=== PATIENT | male | born 1955 | race Caucasian/White ===

== ENCOUNTER → 2017-07-20 14:03 | Outpatient (CLI) | payer OTHER, SELFPAY ==
[2017-07-20 15:30] LABS: Albumin, Serum 3.7 g/dL (3.2-5.0); BUN 24 mg/dL (7-18); BUN/Creat Ratio 15.4 RATIO (10-20); Chloride 104 mmol/L (98-107); Creatinine, Serum 1.56 mg/dL (0.70-1.30); EST Glomerular Filtration Rate 48 mL/min (>60); Est Glom Filt Rate - Afr Amer 58 mL/min (>60); Glucose 73 mg/dL (74-106); Phosphorus 2.6 mg/dL (2.5-4.9); Potassium 4.2 mmol/L (3.5-5.1); Sodium Level 140 mmol/L (136-145)
[2017-07-20 15:52] LABS: Protein, Urine (Random) 9.7 mg/dL (<11.9); Protein:Creat Ratio 92 mg/g CRE (0-200)
== END ==
PROVIDERS: Family Provider Family Medicine; PCP Family Medicine; Visit Provider Internal Medicine Nephrology
DX: E11.22 Type 2 diabetes mellitus with diabetic chronic kidney disease (principal); N18.3 Chronic kidney disease, stage 3 (moderate)
CPT/HCPCS: 36415; 80069; 82570; 84156

== ENCOUNTER → 2017-11-03 07:35 | Outpatient (CLI) | payer OTHER, SELFPAY ==
--- NOTE | 2017-11-03 07:55 | RAD_ITS ---
STUDY: X-RAY CHEST REASON FOR EXAM: Male, 62 years old. Shortness of breath TECHNIQUE: PA and lateral views of the chest. COMPARISON: 06/12/2013 FINDINGS: The lungs are hyperinflated but clear. No focal consolidation. There is no demonstrated pleural abnormality. Normal size heart. Normal mediastinum and erwin. Normal visualized pulmonary arteries. Normal visualized aortic arch and descending thoracic aorta. Normal visualized thoracic spine. Normal visualized ribs, clavicles, and shoulders. There is no demonstrated abnormality of the visualized soft tissue structures of the upper abdomen. RAD/Chest PA and Lateral IMPRESSION: Hyperinflation, without focal consolidation. Electronically Signed: Chandu Stephenson DO at 8:28 EDT Tel , Service support ,
[2017-11-03 10:42] LABS: ALB/GLOB Ratio 1.1 RATIO (0.9-2.4); AST(SGOT) 19 U/L (15-37); Alanine Aminotransfer ALT/SGPT 25 U/L (16-61); Albumin, Serum 3.7 g/dL (3.2-5.0); Alkaline Phosphatase 74 U/L (45-117); Anion Gap 7 (5-15); BUN 28 mg/dL (7-18); BUN/Creat Ratio 16.9 RATIO (10-20); Calcium,Total 8.9 mg/dL (8.5-10.1); Chloride 105 mmol/L (98-107); Cholesterol 132 mg/dL (200); Creatinine, Serum 1.66 mg/dL (0.70-1.30); EST Glomerular Filtration Rate 45 mL/min (>60); Est Glom Filt Rate - Afr Amer 54 mL/min (>60); Globulin 3.5 g/dL (2.2-4.2); Glucose 92 mg/dL (74-106); High Density Lipoprotein 33 mg/dL; Potassium 4.1 mmol/L (3.5-5.1); Protein, Total 7.2 g/dL (6.4-8.2); Sodium Level 142 mmol/L (136-145); Triglycerides 168 mg/dL; Very Low Density Lipoprotein 34 mg/dL (5-40)
== END ==
PROVIDERS: Family Provider Family Medicine; PCP Family Medicine; Visit Provider Family Medicine
DX: E78.5 Hyperlipidemia, unspecified (principal); E11.9 Type 2 diabetes mellitus without complications; I10 Essential (primary) hypertension; R06.00 Dyspnea, unspecified
CPT/HCPCS: 36415; 71046; 80053; 80061; 83036

== ENCOUNTER → 2017-12-05 06:47 | Outpatient (CLI) | payer OTHER, SELFPAY ==
--- NOTE | 2017-12-05 14:24 | PFT ---
INTRODUCTION: The patient is a 62-year-old male that presents for pulmonary function testing secondary to a diagnosis of dyspnea. Respiratory therapy reports good patient effort. Bronchodilators were used during testing. INTERPRETATION: Forced expiration spirometry demonstrates no evidence of a large airways obstructive ventilatory defect. There was no significant response to aerosolized bronchodilators, based upon strict ATS criteria. Spirograms are of good quality and plateau gradually. Body plethysmography was performed and reveals lung volumes to be within normal limits. Diffusing capacity by single breath CO is increased at 124% of predicted. IMPRESSION: These pulmonary function studies are grossly within normal limits.
== END ==
PROVIDERS: Family Provider Family Medicine; PCP Family Medicine; Visit Provider Family Medicine
DX: R06.00 Dyspnea, unspecified (principal)
CPT/HCPCS: 94060; 94726; 94729

== ENCOUNTER 2017-12-16 13:47 | Emergency (ER) | payer OTHER, SELFPAY ==
[2017-12-16] VITALS (8 sets, daily range): BP systolic 121–155; BP diastolic 73–101; PULSE 88–130; RESP 14–24; TEMP 36.4; O2SAT 94–98; BMI 27.1
--- NOTE | 2017-12-16 14:20 | EKG12_ITS ---
Test Reason : SOB Blood Pressure : / mmHG Vent. Rate : 117 BPM Atrial Rate : 117 BPM P-R Int : 164 ms QRS Dur : 146 ms QT Int : 338 ms P-R-T Axes : 063 042 012 degrees QTc Int : 471 ms Sinus tachycardia Right bundle branch block Abnormal ECG Confirmed by ELSIE ROSALES, LACHELLE ([id number]), newspaper editor managing SEBASTIÁN HORNE ([id number]) on 12/19/2017 3:07:38 PM Referred By: RENA Confirmed By:LACHELLE ZIMMERMAN MD
--- NOTE | 2017-12-16 14:21 | RAD_ITS ---
STUDY: X-RAY CHEST REASON FOR EXAM: Male, 62 years old. Shortness of breath and tachycardia. TECHNIQUE: PA and lateral views of the chest. COMPARISON: 11/03/2017. FINDINGS: The lungs are clear and expanded. There is no demonstrated pleural abnormality. Normal size heart. Normal mediastinum and erwin. Normal visualized pulmonary arteries. Normal visualized aortic arch and descending thoracic aorta. Normal visualized thoracic spine. Normal visualized ribs, clavicles, and shoulders. There is no demonstrated abnormality of the visualized soft tissue structures of the upper abdomen. RAD/Chest PA and Lateral IMPRESSION: No active pulmonary disease. Electronically Signed: Juan Sanchez MD at 15:01 EDT Tel , Service support ,
[2017-12-16 14:33] LABS: Absolute Lymphocyte Count 2.24 X10^3/ul (0.83-4.51); Basophil# 0.02 X10^3/uL; Basophil% 0.2 % (0-1); Eosinophil# 0.18 X10^3/uL; Eosinophils% 1.5 % (0-5); Hematocrit 42.8 % (40-54); Hemoglobin 14.5 g/dl (13.0-16.5); Lymphocyte # 2.24 X10^3/ul (4.0); Lymphocyte % 19.2 % (19-41); Mean Corp Hgb Conc 33.9 g/gl (32-36); Mean Corpuscular Hgb 30.1 pg (27.0-32.0); Mean Corpuscular Volume 88.8 fL (80-94); Mean Platelet Vol. 9.2 fl (6.2-12.0); Monocyte# 1.28 X10^3/uL; Monocyte% 10.9 % (0-10); Neutrophil # 7.96 X10^3/uL (2.7-7.7); Neutrophil % 68.1 % (47-70); POSITIVE COUNT NO; POSITIVE DIFFERENTIAL NO; POSITIVE MORPHOLOGY NO; Platelet Count 301 K/mm3 (150-450); RBC Distribution Width CV 12.5 % (11.6-14.6); RBC Distribution Width SD 40.3 fl (35.1-43.9); Red Blood Count 4.82 M/mm3 (4.6-6.2); White Blood Count 11.7 K/mm3 (4.4-11.0)
[2017-12-16 14:39] LABS: D-Dimer Quantitative (DVT/PE) 1.36 FEU/ug/m (0.27-0.49)
[2017-12-16 14:47] LABS: Anion Gap 7 (5-15); BUN 25 mg/dL (7-18); BUN/Creat Ratio 15.4 RATIO (10-20); Calcium,Total 9.9 mg/dL (8.5-10.1); Chloride 102 mmol/L (98-107); Creatinine, Serum 1.62 mg/dL (0.70-1.30); EST Glomerular Filtration Rate 46 mL/min (>60); Est Glom Filt Rate - Afr Amer 55 mL/min (>60); Estimated Creatinine Clearance 52.06 ml/min; Glucose 120 mg/dL (74-106); Potassium 3.7 mmol/L (3.5-5.1); Sodium Level 138 mmol/L (136-145)
[2017-12-16] MEDS: 0.9% Normal Saline 1,000 ML 999 ML IV (15:08)
--- NOTE | 2017-12-16 17:06 | CT_ITS ---
STUDY: CTA CHEST REASON FOR EXAM: Male, 62 years old. Shortness of breath, dizziness RADIATION DOSAGE (If Supplied By Facility): CTDIvol = ( 17.02 ) mGy, DLP = ( 672.48 ) mGycm TECHNIQUE: The examination was performed with the intravenous administration of 100 ml of Isovue 370 contrast material. Post-processing of the angiographic images was performed, with multiplanar reformation and 3D reconstruction. Individualized dose optimization techniques were used for this CT. COMPARISON: Chest radiographs from the same day FINDINGS: Normal enhancement of the main pulmonary artery and right and left pulmonary arteries without filling defects. There is limited enhancement of the bilateral peripheral pulmonary arteries. There are minimal vascular calcifications in the thoracic aorta. There is no demonstrated aortic dissection. Incidentally noted is takeoff of the left vertebral artery from the aortic arch which is a normal anatomic variant. The heart is normal in size. There are calcifications of the coronary arteries. There are small lymph nodes scattered in the mediastinum. The hilar regions are unremarkable. The airways are unremarkable. There are mild chronic changes in the periphery of both lungs with an upper lobe predominance. There is a 6 mm opacity in the periphery of the left lower lobe on image 134. There is no demonstrated pleural abnormality. The soft tissues are unremarkable. There are mild degenerative changes in the visualized spine. There is a small hiatal hernia. There are no acute abnormalities in the upper abdomen. CT/CTA Chest W/WO Contrast IMPRESSION: There is no evidence of pulmonary embolism in the main pulmonary arteries. The distal branches are not adequately visualized due to suboptimal contrast bolus. There is no aortic aneurysm or dissection. There are no acute parenchymal abnormalities. There is no pleural effusion or significant lymphadenopathy. There is an indeterminate 6 mm opacity in the periphery of the left lower lobe. A CT of the chest can be obtained in six months to reevaluate this finding. Electronically Signed: Jenelle Tse MD at 18:49 EDT Tel Direct: [phone], Service support ,
[2017-12-16] MEDS: 0.9% Normal Saline 1,000 ML 150 ML IV (17:10)
--- NOTE | 2017-12-16 18:00 | ED.VISSUMM ---
- ER Visit Summary Date of Service: 12/16/17 Chief Complaint: Shortness of breath History of Present Illness: The patient is a 62 M who presents with shortness of breath that began today. Patient states his breathing is worse with exertion. Patient states he was planting a tree earlier today and when he was walking back to bring the water to the tree he became short of breath. Patient states she felt like he was lightheaded and felt his heart racing when he got the shortness of breath. Patient states this resolved after sitting for a few minutes. Patient states that it has been coming and going since. Patient also admits to some episodes of diaphoresis. Patient denies any fevers or chills. Patient admits to some nausea and vomiting yesterday. Patient is also concerned over pain in his right inguinal area. Patient states another family member was recently diagnosed with Lyme disease and he is concerned that his inguinal pain is from that. Patient denies seeing any ticks. Patient states he did have some redness in his inguinal area yesterday. Patient states the pain radiates to his right thigh and right buttock. Physical Examination: Vital signs are stable except for tachycardia of 130. Patient is afebrile. Patient is in no acute distress. Oral mucosa is pink and moist. Neck is supple. Trachea is midline. There is no JVD noted. Heart was regular and tachycardic. Lungs are clear and equal bilaterally. There is good respiratory effort noted. Abdomen is soft. Bowel sounds are normal. There is no tenderness noted. Skin is warm and dry. There is no erythema over the inguinal area. There is no lymphadenopathy noted. Extremities are intact. There is no edema noted. There is no calf tenderness. There is some mild tenderness over the right medial thigh. Cranial nerves II through XII are intact. There are no focal motor or sensory deficits noted. Test Results: D-dimer was elevated. CBC and basic metabolic profile were essentially within normal limits with the exception of a mildly elevated creatinine of 1.62. EKG showed sinus tachycardia with a rate of 117. There is a right bundle branch block pattern noted. There are no prior EKGs available for comparison. Chest x-ray does not show any acute cardiopulmonary process. CTA of the chest was obtained and is pending. Emergency Department Course and Treatment: Patient was given IV fluids here. Patient's tachycardia improved. I discussed the risks of IV dye with the patient given his history of renal disease. Patient did agree to have the CTA of the chest performed. Disposition: Care of the patient was turned over to Dr. Avalos pending results of the CTA. Patient will be discharged if the CTA is negative. Patient will be admitted if CTA shows a pulmonary embolism Impression: Dyspnea This note was generated with [employer] dictation software. It may contain incorrect words, spelling, and punctuation that were not noted in review of the chart prior to signing ED Disposition - Plan for ED Patient: Chief Complaint: Shortness of Breath Diagnosis: Dyspnea Instructions: ED Dyspnea Shortness of Breath Referrals: Sawyer Yan DO [Primary Care Provider] -
--- NOTE | 2017-12-16 19:01 | ED.DEP ---
ED Disposition - Plan for ED Patient: Disposition: Home or Assisted Living Chief Complaint: Shortness of Breath Diagnosis: Dyspnea Instructions: ED Dyspnea Shortness of Breath, ED Nodule Solitary Pulmonary Referrals: Sawyer Yan DO [Primary Care Provider] -
== END 2017-12-16 19:09 | disposition home or self-care (01) ==
PROVIDERS: Emergency Provider Emergency Medicine; Family Provider Family Medicine; PCP Family Medicine
DX: R06.00 Dyspnea, unspecified (principal); R42 Dizziness and giddiness; R61 Generalized hyperhidrosis; R11.2 Nausea with vomiting, unspecified; R10.31 Right lower quadrant pain; R05 Cough; R51 Headache; R79.89 Other specified abnormal findings of blood chemistry; I45.10 Unspecified right bundle-branch block; N28.9 Disorder of kidney and ureter, unspecified; I10 Essential (primary) hypertension; E78.00 Pure hypercholesterolemia, unspecified; Z85.038 Personal history of other malignant neoplasm of large intestine; Z79.899 Other long term (current) drug therapy
CPT/HCPCS: 71046; 71275; 80048; 84484; 85025; 85379; 93005; 96360; 96361; 99284; J7030; Q9967; A4216

== ENCOUNTER → 2018-01-17 10:09 | Outpatient (CLI) | payer OTHER, SELFPAY ==
[2018-01-17 11:38] LABS: Anion Gap 10 (5-15); BUN 24 mg/dL (7-18); Calcium,Total 9.1 mg/dL (8.5-10.1); Chloride 100 mmol/L (98-107); EST Glomerular Filtration Rate 46 mL/min (>60); Est Glom Filt Rate - Afr Amer 56 mL/min (>60); Glucose 95 mg/dL (74-106); Potassium 4.4 mmol/L (3.5-5.1); Sodium Level 138 mmol/L (136-145); Thyroid Stim Hormone (TSH) 1.01 uIU/mL (0.358-3.74)
== END ==
PROVIDERS: Family Provider Family Medicine; PCP Family Medicine; Visit Provider Internal Medicine Cardiovascular Disease
DX: I45.10 Unspecified right bundle-branch block (principal); R06.00 Dyspnea, unspecified
CPT/HCPCS: 36415; 80048; 84443

== ENCOUNTER → 2018-01-26 14:07 | Outpatient (CLI) | payer OTHER, SELFPAY ==
[2018-01-26 14:57] LABS: Hematocrit 33.7 % (40-54); Hemoglobin 10.8 g/dl (13.0-16.5); Mean Corpuscular Hgb 28.1 pg (27.0-32.0); Mean Corpuscular Volume 87.8 fL (80-94); Mean Platelet Vol. 8.6 fl (6.2-12.0); Platelet Count 339 K/mm3 (150-450); RBC Distribution Width CV 13.5 % (11.6-14.6); Red Blood Count 3.84 M/mm3 (4.6-6.2); White Blood Count 9.2 K/mm3 (4.4-11.0)
[2018-01-26 15:00] LABS: Scan Indicated on CBC? Y/N NO
[2018-01-26 15:22] LABS: Albumin, Serum 2.5 g/dL (3.2-5.0); BUN 21 mg/dL (7-18); BUN/Creat Ratio 13.9 RATIO (10-20); Calcium,Total 8.7 mg/dL (8.5-10.1); Chloride 101 mmol/L (98-107); Creatinine, Serum 1.51 mg/dL (0.70-1.30); EST Glomerular Filtration Rate 50 mL/min (>60); Est Glom Filt Rate - Afr Amer 60 mL/min (>60); Glucose 199 mg/dL (74-106); Phosphorus 2.4 mg/dL (2.5-4.9); Potassium 3.9 mmol/L (3.5-5.1); Sodium Level 136 mmol/L (136-145)
== END ==
PROVIDERS: Family Provider Family Medicine; PCP Family Medicine; Visit Provider Internal Medicine Nephrology
DX: N18.3 Chronic kidney disease, stage 3 (moderate) (principal)
CPT/HCPCS: 36415; 80069; 83970; 85027

== ENCOUNTER → 2018-02-07 06:33 | Outpatient (CLI) | payer OTHER, SELFPAY ==
--- NOTE | 2018-02-07 06:34 | ECHOD_ITS ---
Reason For Study: DYSPNEA/SOB Procedure This was a 2D Doppler, Color Flow transthoracic echocardiogram. Exam performed in department. Left Ventricle Normal LV size. Left ventricular systolic function is normal. The estimated ejection fraction is 60 %. Stage 1 diastolic dysfunction. No regional wall motion abnormalities noted. Right Ventricle Normal RV size. Normal systolic function. Atria Normal left atrium. Normal right atrium. Bubble contrast study negative for right to left interatrial shunt. Mitral Valve Normal mitral valve. Tricuspid Valve Normal tricuspid valve. Aortic Valve Normal aortic valve. Trisinus/trileaflet aortic valve. Pulmonic Valve Normal pulmonic valve. Great Vessels Normal aortic root. The pulmonary artery is normal size. Normal inferior vena cava. Pericardium/Pleural No pericardial effusion. Medication Performed a rapid injection of agitated mix of 9 cc saline and 1cc air to assess for atrial septal defect. MMode/2D Measurements & Calculations LVIDd: 4.5 cm IVSd: 1.2 cm Ao root diam: 3.2 cm LVIDs: 3.0 cm LVPWd: 1.1 cm LA dimension: 3.4 cm RVDd: 3.8 cm FS: 34.1 % LAV(MOD-bp): 36.4 ml LVAd ap4: 32.6 cm2 SV(MOD-sp4): 64.3 ml LAV(MOD-bp) Indexed: 16.9 ml/m2 EDV(MOD-sp4): 106.2 ml LAV(MOD-sp2): 36.2 ml EDV(sp4-el): 107.4 ml LAV(MOD-sp4): 34.4 ml LVAs ap4: 18.4 cm2 ESV(MOD-sp4): 41.9 ml ESV(sp4-el): 41.7 ml EF(MOD-sp4): 60.5 % EF(sp4-el): 61.2 % SV(sp4-el): 65.8 ml LA A4 area: 14.8 cm2 RA A4 area: 14.7 cm2 Time Measurements MV dec time: 0.28 sec Doppler Measurements & Calculations MV E max jeronimo: 57.4 cm/sec Lat Peak E' Jeronimo: 7.0 cm/sec Med Peak E' Jeronimo: 7.0 cm/sec MV A max jeronimo: 87.0 cm/sec E/E' lat: 8.1 E/E' med: 8.2 MV E/A: 0.66 Ao V2 max: 125.1 cm/sec LV V1 max: 116.5 cm/sec PA V2 max: 104.8 cm/sec Ao max P.3 mmHg LV V1 max P.4 mmHg TR max jeronimo: 252.4 cm/sec TR max P.6 mmHg Interpretation Summary Normal LV size. Left ventricular systolic function is normal. The estimated ejection fraction is 60 %. Stage 1 diastolic dysfunction. Bubble contrast study negative for right to left interatrial shunt. Ordering Physician: Manas Warren Referring Physician: FRANKIE JIM Performed By: Vani Mejía RDCS
--- NOTE | 2018-02-07 10:30 | STRESSREP ---
Stress Test Report Exercise myocardial perfusion stress test. 62-year-old man with a history of shortness of breath. Medications ezetimibe metformin. Stress protocol: Resting EKG demonstrates normal sinus rhythm with a rate of 60 bpm with a right bundle branch block resting blood pressures 142/88 mmHg. The patient exercised according to regular Pradeep protocol for total duration of 4 minutes and 45 seconds with a maximum heart rate of 169 beats minute which was 108% of maximum predicted heart rate and a workload of 6.7 metabolic equivalents. Patient maintained sinus rhythm throughout the recording. There were no ST or T-wave changes noted suggest abnormal flow reserve and at peak exercise upsloping ST changes only were noted with no meet the criteria for ischemia the resting blood pressure is 142/88 with a final blood pressure 130/80 mmHg. There was no increase in blood pressure with exercise. The patient was noted to be markedly short of breath. Myocardial perfusion protocol. 11.2 mCi of technetium 99m sestamibi was injected at rest. The patient exercised according to regular Pradeep protocol for total duration of 4 minutes and 45 seconds at peak exercise 33.7 mCi of technetium 99m sestamibi was injected stress images were obtained stress and rest images were reconstructed and compared in the short axis vertical and horizontal long axis. Gated images were also noted. Perfusion SPECT analysis: Review of the stress images demonstrate normal uptake of tracer noted in the septum anterior wall lateral wall. The entire inferior wall appears to have reduced perfusion on the stress and resting images. The above is suggestive of either previous diaphragmatic attenuation extensive or previous extensive inferior infarct. Gated SPECT analysis: The gated ejection fraction is noted to be 58%. No obvious wall motion abnormalities are noted. Conclusion: Exercise myocardial perfusion stress test with no obvious ischemia noted. Previous extensive inferior infarct cannot be excluded. Moderate functional aerobic impairment. In appropriate blood pressure response to exercise.
== END ==
PROVIDERS: Family Provider Family Medicine; PCP Family Medicine; Visit Provider Internal Medicine Cardiovascular Disease
DX: R06.00 Dyspnea, unspecified (principal)
CPT/HCPCS: 78452; 93017; 93306; A9500; A4216

== ENCOUNTER → 2018-02-09 08:05 | Outpatient (CLI) | payer OTHER, SELFPAY ==
[2018-02-09 08:45] LABS: Absolute Lymphocyte Count 2.09 X10^3/ul (0.83-4.51); Absolute Neutrophil Count 4.1 X10^3/uL (2.0-7.7); Basophil# 0.02 X10^3/uL; Basophil% 0.3 % (0-1); Eosinophil# 0.05 X10^3/uL; Eosinophils% 0.7 % (0-5); Hematocrit 35.4 % (40-54); Hemoglobin 11.3 g/dl (13.0-16.5); Lymphocyte # 2.09 X10^3/ul (4.0); Lymphocyte % 30.6 % (19-41); Mean Corp Hgb Conc 31.9 g/gl (32-36); Mean Corpuscular Hgb 28.2 pg (27.0-32.0); Mean Corpuscular Volume 88.3 fL (80-94); Mean Platelet Vol. 8.7 fl (6.2-12.0); Monocyte# 0.54 X10^3/uL; Monocyte% 7.9 % (0-10); Neutrophil # 4.12 X10^3/uL (2.7-7.7); Neutrophil % 60.4 % (47-70); Platelet Count 292 K/mm3 (150-450); RBC Distribution Width CV 14.3 % (11.6-14.6); Red Blood Count 4.01 M/mm3 (4.6-6.2); White Blood Count 6.8 K/mm3 (4.4-11.0)
[2018-02-09 08:47] LABS: POSITIVE COUNT NO; POSITIVE DIFFERENTIAL NO; POSITIVE MORPHOLOGY NO
[2018-02-09 08:53] LABS: Prothrombin Time (Protime)PT. 13.5 SECONDS (11.7-14.9)
[2018-02-09 09:15] LABS: Anion Gap 10 (5-15); BUN 21 mg/dL (7-18); BUN/Creat Ratio 13.3 RATIO (10-20); Calcium,Total 8.8 mg/dL (8.5-10.1); Chloride 105 mmol/L (98-107); Creatinine, Serum 1.58 mg/dL (0.70-1.30); EST Glomerular Filtration Rate 47 mL/min (>60); Est Glom Filt Rate - Afr Amer 57 mL/min (>60); Glucose 164 mg/dL (74-106); Potassium 3.9 mmol/L (3.5-5.1); Sodium Level 138 mmol/L (136-145)
== END ==
PROVIDERS: Family Provider Family Medicine; PCP Family Medicine; Visit Provider Internal Medicine Cardiovascular Disease
DX: E78.5 Hyperlipidemia, unspecified (principal); I10 Essential (primary) hypertension; R06.00 Dyspnea, unspecified; E11.9 Type 2 diabetes mellitus without complications; I45.10 Unspecified right bundle-branch block; R94.31 Abnormal electrocardiogram [ECG] [EKG]; R94.39 Abnormal result of other cardiovascular function study
CPT/HCPCS: 36415; 80048; 85025; 85610; 85730

== ENCOUNTER 2018-02-12 06:52 | Day surgery (SDC) | payer OTHER, SELFPAY ==
[2018-02-09 09:59] VITALS: BMI 26.1
--- NOTE | 2018-02-12 10:41 | CL.D_ITS ---
Patient Name: SHADIA BHATIA Study Date: 02/12/2018 Performing: Manas Warren MD Ht: 72.83 inches 185 cm : 1955 Wt: 198.42 lbs 90 kg Age: 62 Gender: male BSA: 2.14 PROCEDURE(S) PERFORMED TK93-VPU/COR CLINICAL PROFILE AND INDICATIONS Indications: Suspected CAD Heart Failure: None Stress/Imaging Stress Test w/SPECT MPI: Yes Result: IndeterminantStress Test with SPECT MPI: Inde terminant CAD Presentations: No Sxs, no angina. CONCLUSIONS Non obstructive coronary arteries RECOMMENDATIONS Medical therapy DESCRIPTION OF PROCEDURE The patient arrived to the procedure lab. The risks and benefits of the procedure as well as a full d escription of our services here and current unavailability of surgical backup were fully explained to the patient and/or their significant other prior to the catheterization. The Timeout was completed, verifying the correct patient and procedure. The patient's procedural site was prepped and draped in the usual fashion. Local anesthetic was given subcutaneously to right radial region with Lidocaine 2% . Using a modified Seldinger technique, arterial access was obtained via the right radial artery, a 6 Fr sheath was inserted. Left Coronary Artery selective angiography was performed in multiple views u sing a 5 Fr. 4.0 [place] catheter. Right Coronary Artery selective angiography was then performed in mu ltiple views using a 5 Fr. 4.0 [place] catheter.The arterial sheath was pulled and a TR Band was applie d for hemostasis, 14cc of air CORONARY ANGIOGRAPHY DOMINANCE: Right Dominant LEFT HEART ASSESSMENT Left Ventricular Ejection Fraction: Not assessed LEFT MAIN: Angiographically normal LEFT ANTERIOR DECENDING ARTERY: MID LAD: Mild luminal irregularities less than 30% CIRCUMFLEX ARTERY: Angiographically normal RIGHT CORONARY ARTERY: Angiographically normal COMPLICATIONS No Complications PROCEDURE MEDICATIONS Fentanyl 50 mcg IV Versed 1 mg IV Versed 1 mg IV Versed 1 mg IV Oxygen: 2 L/min via nasal cannula Heparin diluted in 23cc Heparinized saline. Patient given 10cc IA of this solution. 02/12/2018 10:16: 07 Verapamil 2.5mg, Ntg 100mcgs, 2000 units of Heparin diluted in 23cc Heparinized saline. Patient give n 10cc IA of this solution. 02/12/2018 10:16:07 SUMMARY OF HEMODYNAMIC DATA Time AIR REST ECG 07:16:07 AO 102/66 (82) SA 10:17:35 Signed By Manas Warren MD On 02/12/2018 10:41:17 Manas Warren MD
== END 2018-02-12 13:30 | disposition home or self-care (01) ==
LOC: CLSP 06:54
PROVIDERS: Family Provider Family Medicine; PCP Family Medicine; Visit Provider Internal Medicine Cardiovascular Disease
DX: R06.00 Dyspnea, unspecified (principal); I45.10 Unspecified right bundle-branch block; R94.31 Abnormal electrocardiogram [ECG] [EKG]; E11.9 Type 2 diabetes mellitus without complications; I10 Essential (primary) hypertension; E78.5 Hyperlipidemia, unspecified; F41.9 Anxiety disorder, unspecified; L30.9 Dermatitis, unspecified; Z85.038 Personal history of other malignant neoplasm of large intestine; Z79.84 Long term (current) use of oral hypoglycemic drugs; Z79.899 Other long term (current) drug therapy
CPT/HCPCS: 93454; 99152; J7040; Q9967; C1769; C1894

== ENCOUNTER → 2018-02-15 09:59 | Outpatient (CLI) | payer OTHER, SELFPAY ==
[2018-02-15 11:07] LABS: Anion Gap 6 (5-15); BUN 17 mg/dL (7-18); BUN/Creat Ratio 11.6 RATIO (10-20); Chloride 106 mmol/L (98-107); Creatinine, Serum 1.47 mg/dL (0.70-1.30); EST Glomerular Filtration Rate 51 mL/min (>60); Est Glom Filt Rate - Afr Amer 62 mL/min (>60); Glucose 76 mg/dL (74-106); Potassium 4.2 mmol/L (3.5-5.1); Sodium Level 140 mmol/L (136-145)
== END ==
PROVIDERS: Family Provider Family Medicine; PCP Family Medicine; Referring Provider Internal Medicine Cardiovascular Disease; Visit Provider Internal Medicine Cardiovascular Disease
DX: R94.39 Abnormal result of other cardiovascular function study (principal); R94.31 Abnormal electrocardiogram [ECG] [EKG]; I45.10 Unspecified right bundle-branch block; E11.9 Type 2 diabetes mellitus without complications; R06.00 Dyspnea, unspecified; E78.5 Hyperlipidemia, unspecified; I10 Essential (primary) hypertension
CPT/HCPCS: 36415; 80048

== ENCOUNTER → 2018-03-16 09:41 | Outpatient (CLI) | payer OTHER, SELFPAY ==
--- NOTE | 2018-03-16 09:44 | CDU_ITS ---
[id number] ^CDU^Carotid Duplex Ultrasound [id number] TAG_START Cardiovascular Services Carotid Duplex Ultrasound [facility] [place] [id number] Ordering Physician: Sawyer Yan TAG_ENDED TAG_START Name: SHADIA BHATIA Study Date: 03/16/2018 09:46 AM Patient Location: [facility] : 1955 Gender: Male Age: 62 yrs Ethnicity: C TAG_ENDED Reason For Study: Vision Loss Rt. Velocities/BP Lt. Velocities/BP Prox CCA 80.9/16.4 cm/sec. Prox CCA 76.2/21.1 cm/sec. Mid CCA 69.2/16.4 cm/sec. Mid CCA 66/19.9 cm/sec. Dist CCA 59.3/14.1 cm/sec. Dist CCA 62.7/22.9 cm/sec. Prox ICA 41.7/16.7 cm/sec. Prox ICA 77.4/28.1 cm/sec. Mid ICA 47.9/18.5 cm/sec. Mid ICA 57.6/20.8 cm/sec. Dist ICA 77.4/24 cm/sec. Dist ICA 65.2/26.7 cm/sec. Rt. ICA/CCA = 1.12. Lt. ICA/CCA = 1.17. Prox ECA 79.2/11.1 cm/sec. Prox ECA 78/9.97 cm/sec. Rt. Vert. 39.7/11 cm/sec. Lt. Vert. 33.3/6.9 cm/sec. Right Extracranial There is intimal thickening but no significant atherosclerotic plaque noted in the right common carotid artery. There is intimal thickening but no significant atherosclerotic plaque noted in the right internal carotid artery. There is no significant atherosclerotic plaque noted in the right external carotid artery. Antegrade flow is noted in the right vertebral artery. There is heterogeneous, irregular atherosclerotic plaque noted in the right bulb. Left Extracranial There is intimal thickening but no significant atherosclerotic plaque noted in the left common carotid artery. There is intimal thickening but no significant atherosclerotic plaque noted in the left internal carotid artery. There is intimal thickening but no significant atherosclerotic plaque noted in the left external carotid artery. Antegrade flow is noted in the left vertebral artery. There is heterogeneous, smooth atherosclerotic plaque noted in the left bulb. Procedure Carotid Duplex [id number]. Exam performed in department. Interpretation Summary Irregular plague at the proximal right internal carotid with <50% stenosis. Minimal smooth plague at the proximal left internal carotid with <50% stenosis. Normal flow bilateral external carotids Patent and antegrade vertebrals bilaterally TAG_START TAG_ENDED Ordering Physician: Sawyer Yan Referring Physician: Sawyer Yan Performed By: Craolyn Rock RVT and Student
== END ==
PROVIDERS: Family Provider Family Medicine; PCP Family Medicine; Referring Provider Family Medicine; Visit Provider Family Medicine
DX: H54.7 Unspecified visual loss (principal); I10 Essential (primary) hypertension
CPT/HCPCS: 93880

== ENCOUNTER → 2018-03-21 08:51 | Outpatient (CLI) | payer OTHER, SELFPAY ==
[2018-03-21 09:23] VITALS: PULSE 69; PULSE 71; PULSE 92; PULSE 94; PULSE 95; PULSE 97; PULSE 98; O2SAT 97; O2SAT 98; O2SAT 99
--- NOTE | 2018-03-21 14:57 | PCM.PSN.6M ---
PSN 6 Minute Walk Test - 6 Minute Walk Test 6 Minute Walk Test: 6 Minute Walk Test PSN:6-Minute Walk Test Start: 03/21/18 09:22 Freq: Status: Active Protocol: RESP.6MINW Document 03/21/18 09:23 TANNER (Rec: 03/21/18 09:25 TANNER [id number]) 6 Minute Walk Test Date Performed 03/21/18 Time Performed 09:00 Height 6 ft 1 in Weight: 94.801 kg Weight in Pounds 209.[address]: Shekhar Yan Assistive device used: None Pre-test Oxygen Delivery Method Room Air Pulse Ox (%) 98 Pulse Rate (60-100 beats/min) 69 Dyspnea Angélica Scale (0-10) 0.5 Exertion Angélica Scale (6-20) 6 1st minute Oxygen Delivery Method Room Air Pulse Ox (%) 98 Pulse Rate (60-100 beats/min) 98 2nd minute Oxygen Delivery Method Room Air Pulse Ox (%) 98 Pulse Rate (60-100 beats/min) 97 3rd minute Oxygen Delivery Method Room Air Pulse Ox (%) 98 Pulse Rate (60-100 beats/min) 94 4th minute Oxygen Delivery Method Room Air Pulse Ox (%) 98 Pulse Rate (60-100 beats/min) 98 5th minute Oxygen Delivery Method Room Air Pulse Ox (%) 97 Pulse Rate (60-100 beats/min) 95 6th minute Oxygen Delivery Method Room Air Pulse Ox (%) 98 Pulse Rate (60-100 beats/min) 92 Dyspnea Angélica Scale (0-10) 3 Exertion Angélica Scale (6-20) 13 Post-test Oxygen Delivery Method Room Air Pulse Ox (%) 99 Pulse Rate (60-100 beats/min) 71 Full Laps Walked 20 Partial Lap, Number of Tiles Walked 10 Total Distance Walked (ft) 1190 - Interpretation Interpretation: The patient was able to ambulate 1190 feet over the course of 6 minutes on room air with no assistive devices or breaks. There is no significant desaturation or tachycardia noted. These findings are consistent with a normal walking oximetry - Recommendations Recommendations: No supplemental oxygen is indicated at this time.
== END ==
PROVIDERS: Family Provider Family Medicine; PCP Family Medicine; Referring Provider Nurse Practitioner Acute Care; Visit Provider Nurse Practitioner Acute Care
DX: R06.02 Shortness of breath (principal)
CPT/HCPCS: 94618

== ENCOUNTER → 2018-04-06 07:14 | Outpatient (CLI) | payer OTHER, SELFPAY ==
[2018-04-04 10:50] VITALS: BMI 28.2
--- NOTE | 2018-04-06 07:15 | MRI_ITS ---
STUDY: MRI BRAIN WITH AND WITHOUT CONTRAST REASON FOR EXAM: Male, 62 years old. H/A, BLURRED VISION. History of colon CA. TECHNIQUE: Standardized multiplanar fat and water weighted pulse sequences were obtained. 10 ml of Gadavist contrast material was administered intravenously for the contrast portion of the examination. COMPARISON: CT of the head dated November 08, 2009 FINDINGS: There is mild cerebral atrophy with widening of the extra-axial spaces and ventricular dilatation. There are a limited number of small white matter hyperintensities, distributed throughout the deep white matter tracts of the cerebral hemispheres, consistent with mild chronic white matter ischemic changes. Normal bilateral basal ganglia. Normal thalami. There is no extra-axial fluid accumulation. Normal flow voids within the major intracranial circulation suggesting patency by spin echo criteria. Normal venous enhancement. There is no enhancing intra-axial or extra-axial abnormality. Normal sella turcica, pituitary gland, infundibular stalk, optic chiasm and hypothalamus. Normal tectal plate and pineal gland. Normal midbrain, franny and medulla. Normal cerebellum. Normal basal cisterns. Normal bilateral temporal bones. Normal bilateral internal auditory canals. No demonstrated orbital abnormality, within the constraints of a routine brain study. Normal visualized paranasal sinuses. Normal calvarium and skull base. Normal visualized soft tissue structures. Normal visualized upper cervical spine. MRI/Brain W/WO Contrast IMPRESSION: No evidence for metastatic disease. No acute intracranial abnormality. Electronically Signed: Ryder Monsivais MD at 9:08 EST Tel , Service support ,
--- NOTE | 2018-04-06 07:15 | MRI_ITS ---
STUDY: MRA OF THE HEAD WITHOUT CONTRAST REASON FOR EXAM: Male, 62 years old. vision loss, H/A. History of colon CA. TECHNIQUE: 3-D dmgj-ic-xmroem (TOF) imaging was performed with MIPs. The study was performed unenhanced. COMPARISON: None. FINDINGS: Normal bilateral petrous carotid arteries. Normal right cavernous carotid artery with a normal supraclinoid bifurcation. Normal left cavernous carotid artery with a normal supraclinoid bifurcation. Normal right A1 segments of the anterior cerebral artery. Normal left A1 segments of the anterior cerebral artery. Normal intact anterior communicating artery (ACOM). Normal bilateral A2 segments of the anterior cerebral arteries. Normal right M1 and M2 segments of the middle cerebral arteries, with a normal M1 bifurcation. Normal left M1 and M2 segments of the middle cerebral arteries, with a normal M1 bifurcation. There is a persistent origin of the right posterior cerebral artery with absence of the P1 segment of the right posterior cerebral artery. There is a persistent origin of the left posterior cerebral artery with absence of the P1 segment of the left posterior cerebral artery. Small bilateral vertebral arteries. Small basilar artery with a normal basilar bifurcation. The visualized bilateral superior cerebellar (SCA) arteries are normal. Normal bilateral P1, P2 and visualized P3 segments of the posterior cerebral arteries. There is no demonstrated aneurysm of the [place]. There is no major vessel occlusion or hemodynamically significant stenosis. There is no demonstrated abnormality of the visualized brain. MRI/MRA Head ONLY without Contrast IMPRESSION: Unremarkable MRA of the head Electronically Signed: Ryder Monsivais MD at 9:08 EST Tel , Service support ,
[2018-04-06] MEDS: 0.9% Normal Saline 1,000 ML 999 ML IV ×2 (09:22→10:24)
[2018-04-06 09:23] VITALS: BP 174/92; PULSE 51; RESP 14; O2SAT 98; BMI 27.6
[2018-04-09 07:45] LABS: CREATININE FINGERSTICK 1.55 mg/dL (0.70-1.30); EGFR FINGERSTICK 48 mL/min (>60)
== END ==
PROVIDERS: Family Provider Family Medicine; PCP Family Medicine; Referring Provider Family Medicine
DX: H53.122 Transient visual loss, left eye (principal)
CPT/HCPCS: 70544; 70553; A9585; J7030; A4216

== ENCOUNTER → 2018-05-07 13:34 | Outpatient (CLI) | payer OTHER, SELFPAY ==
[2018-05-02 08:35] VITALS: BMI 27.4
[2018-05-07 14:30] LABS: Protein, Urine (Random) 8.6 mg/dL (<11.9); Protein:Creat Ratio 77 mg/g CRE (0-200)
[2018-05-07 14:54] LABS: Albumin, Serum 3.8 g/dL (3.2-5.0); BUN 25 mg/dL (7-18); BUN/Creat Ratio 16.4 RATIO (10-20); Calcium,Total 9.2 mg/dL (8.5-10.1); Chloride 104 mmol/L (98-107); Creatinine, Serum 1.52 mg/dL (0.70-1.30); EST Glomerular Filtration Rate 49 mL/min (>60); Est Glom Filt Rate - Afr Amer 60 mL/min (>60); Glucose 148 mg/dL (74-106); Phosphorus 2.8 mg/dL (2.5-4.9); Potassium 4.2 mmol/L (3.5-5.1); Sodium Level 140 mmol/L (136-145)
[2018-05-07 15:02] LABS: Hemoglobin A1c 6.5 % (4.2-6.3)
[2018-05-07 15:06] LABS: BNP,B-Type NATRIURETIC PEPTIDE 16.8 pg/mL (0-100)
== END ==
PROVIDERS: Family Provider Family Medicine; PCP Family Medicine; Referring Provider Nurse Practitioner Family; Visit Provider Nurse Practitioner Family
DX: R06.00 Dyspnea, unspecified (principal); R06.02 Shortness of breath; E78.5 Hyperlipidemia, unspecified; E11.22 Type 2 diabetes mellitus with diabetic chronic kidney disease; I12.9 Hypertensive chronic kidney disease with stage 1 through stage 4 chronic kidney disease, or unspecified chronic kidney disease; N18.3 Chronic kidney disease, stage 3 (moderate)
CPT/HCPCS: 36415; 80069; 82570; 83036; 83880; 84156

== ENCOUNTER → 2018-05-17 06:52 | Outpatient (CLI) | payer OTHER, SELFPAY ==
[2018-05-02 08:35] VITALS: BMI 27.4
--- NOTE | 2018-05-17 10:56 | BRONCHALL_ITS ---
Bronchoprovocation Challenge - Bronchoprovocation Challenge Bronchoprovocation Challenge: BRONCHOPROVOCATION STUDY INTERPRETATION Brief HPI: Patient is a 62 year old fe-male, currently under the care of Dr. Yan, who presents to [facility] for a bronchoprovocation study secondary to diagnosis of dyspnea. Respiratory therapist reports good effort and reproducible results. Interpretation: Initial spirometry showed no large airways obstructive ventilatory defect. The patient was then given increasingly concentrated doses of methacholine in a stepwise fashion, using a modified ATS protocol. The patient?s maximum reduction in FEV1 was 1 percent predicted. Impression: Negative Bronchoprovocation study. This is NOT consistent with the diagnosis of asthma.
== END ==
PROVIDERS: Family Provider Family Medicine; PCP Family Medicine; Referring Provider Internal Medicine Critical Care Medicine; Visit Provider Internal Medicine Critical Care Medicine
DX: R06.02 Shortness of breath (principal)
CPT/HCPCS: 94070; 95070; J3490; J7674

== ENCOUNTER → 2018-11-01 | Outpatient (CLI) | payer MEDICARE, OTHER, SELFPAY ==
[2018-11-01 09:13] VITALS: BMI 26.7
[2018-11-01 12:50] LABS: Anion Gap 7 (5-15); BUN 28 mg/dL (7-18); BUN/Creat Ratio 16.4 RATIO (10-20); Calcium,Total 9.4 mg/dL (8.5-10.1); Chloride 104 mmol/L (98-107); Creatinine, Serum 1.71 mg/dL (0.70-1.30); EST Glomerular Filtration Rate 43 mL/min (>60); Est Glom Filt Rate - Afr Amer 52 mL/min (>60); Glucose 106 mg/dL (74-106); Potassium 4.5 mmol/L (3.5-5.1); Sodium Level 139 mmol/L (136-145)
== END | disposition home or self-care (01) ==
PROVIDERS: Family Provider Family Medicine; PCP Family Medicine; Visit Provider Family Medicine
DX: N28.9 Disorder of kidney and ureter, unspecified (principal)
CPT/HCPCS: 36415; 80048

== ENCOUNTER → 2018-11-29 | Outpatient (CLI) | payer MEDICARE, OTHER, SELFPAY ==
[2018-11-01 09:13] VITALS: BMI 26.7
[2018-11-29 17:47] LABS: Albumin, Serum 3.8 g/dL (3.2-5.0); BUN 27 mg/dL (7-18); BUN/Creat Ratio 15.6 RATIO (10-20); Chloride 104 mmol/L (98-107); Creatinine, Serum 1.73 mg/dL (0.70-1.30); EST Glomerular Filtration Rate 42 mL/min (>60); Est Glom Filt Rate - Afr Amer 51 mL/min (>60); Glucose 153 mg/dL (74-106); Phosphorus 3.2 mg/dL (2.5-4.9); Potassium 4.1 mmol/L (3.5-5.1); Sodium Level 140 mmol/L (136-145)
== END | disposition home or self-care (01) ==
LOC: POLAB3 13:50
PROVIDERS: Family Provider Family Medicine; PCP Family Medicine; Visit Provider Internal Medicine Nephrology
DX: N18.3 Chronic kidney disease, stage 3 (moderate) (principal)
CPT/HCPCS: 36415; 80069

== ENCOUNTER 2019-01-03 10:30 | Outpatient (RCR) | payer MEDICARE, OTHER, SELFPAY ==
[2018-05-21 09:08] VITALS: BMI 27.6
[2018-07-31 15:49] VITALS: BMI 27.6
--- NOTE | 2018-08-09 14:55 | SOAP_ITS ---
REASON FOR REFERRAL: The Patient is a 63 year old male referred for a clinical speech-language evaluation at [facility] / [facility] on 08/09/2018 due to persistent exercise / activity induced shortness of breath likely secondary to paradoxical vocal fold dysfunction following extensive workup by the Patients tubing supervisor (Dr. Yan), inlayer (Dr. Ashley), kitchen hand (Dr. Warren), and primary care physician (Dr. Yna). The Patient reports symptom onset around October of 2017 while cutting down trees, with the Patient describing sudden onset shortness of breath with no precipitating signs lasting for approximately 10-15 minutes, with tightness in his throat in addition to the upper chest, stating increased difficulty during inhalation vs. exhalation. The Patient reports persistent shortness of breath following said episode, with consistent symptom onset as described above with strenuous activity. The Patient denies any association with scents / chemicals or time of day, though does notice that his symptoms were worse in a more hot / humid climate. 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 The Patient denies any prior issues with shortness of breath or breathing, with an athletic background in addition to participating in martial arts, stating he is quite competitive. 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 The Patient reports multiple vocationally related concussions with questionable loss of consciousness. He reports a very brief period of smoking during teenage years, though this was not consistent by any means. The Patient was evaluated by Dr. Ashley with video laryngoscopy, with no obstructing mass or paradoxical laryngeal movement reported; clinical suspicion for reflux leading to the Patient's symptoms, though no improvements in symptomology had been reported following placement on Omeprazole. The Patient is fully ambulatory, appears cognitively intact with appropriate affect. The Patient was recently treated for bronchitis, though denies any further recent pulmonary related complications (aside from above mentioned symptoms precipitating workup). He reports a gradual and intentional 35-40 lbs. weight loss through dieting over the last 2 years. MEDICAL HISTORY: Type 2 diabetes mellitus (Chronic) Hypertension (Chronic) Hyperlipidemia (Chronic) Aneurysm, ophthalmic artery (Chronic) Anxiety disorder (Chronic) Eczema (Chronic) Hypotension (Chronic) Impotence (Chronic) Colon cancer (Resolved) History of colonoscopy (Resolved) History of ear surgery (Resolved ~2003) History of endoscopy (Resolved) History of eye surgery (Resolved) History of left heart catheterization (Resolved 02/12/18) History of open reduction and internal fixation (ORIF) procedure (Resolved ~1969) CURRENT MEDICATIONS: Valium 5mg BID Vitamin b12 1000mg daily Vitamin C 500mg daily Metformin 1000mg BID Zetia 10mg daily Midodrine HCL 5mg BID Biotin [id number] daily Xarelto 2.5mg BID Imitrex 100mg PRN ADDITIONAL OBJECTIVE ASSESSMENT RESULTS: 12/05/2017 pulmonary function testing results were grossly within normal limits. 12/16/[address] revealed no evidence of pulmonary embolism in the main pulmonary arteries; no aortic aneurysm or dissection; no acute parenchymal abnormalities; no pleural effusion or significant lymphadenopathy; indeterminate 6 mm opacity in the periphery of the left lower lobe (6 month follow up recommended) 03/21/2018 6 minute walk test revealed findings consistent with a normal walking oximetry 04/07/2018 MRI revealed no acute intracranial abnormality; no evidence for metastatic disease. 05/17/2018 Bronchoprovocation Challenge results negative; NOT consistent with the diagnosis of asthma. ORAL MOTOR / MODIFIED CRANIAL NERVE ASSESSMENT: CNV, VII, IX, X, and XII appear grossly intact. Natural upper / lower dentition paired with upper / lower dental implants (right quadrants; following vocationally related injury) in good repair; prior restorative work completed; mild gingival recession suspected; normal occlusion. Mild xerostomia with mild halitosis; pinkish appearance to oral mucosa. Appropriate volitional cough intensity. No signs or symptoms of trismus. CLINICAL ASSESSMENT OF VOCAL FUNCTIONING: Vocal Cord Dysfunction Questionnaire (VCD-Q): 40/60 Reflux Symptom Index (RSI): 14 (>13 may be indicative of significant reflux) Patient Health Questionnaire (PHQ-9): 2 (minimal to no risk of depression) Generalized Anxiety Disorder 7-item (CASSIE-7) scale: 5 (indicating a mild risk of anxiety disorder) Voice Handicap Index ? 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 RECOMMENDATIONS: Recommend continued skilled speech-language intervention 1x per week for upwards of 10 weeks with a licensed speech-language pathologist targeting training and implementation of recommended compensatory respiratory strategies and laryngeal control exercises to reduce / eliminate the effects of paradoxical vocal fold dysfunction. FUNCTIONAL OUTCOMES: OUTCOME 1: The Patient with independently demonstrate and utilize recommended compensatory breathing techniques during both structured therapeutic activities and during acute breathing episodes to facilitate improved airway functioning and decreased anxiety at the independent level, across 2 out of 3 sessions. OUTCOME 2: goal adjustment as needed Stevie Rendon M.A., CCC-SPEECH COACH MBSImP Certified, LSVT Certified [facility] Speech-Language Pathology Department [email or web address]
== END 2019-01-03 19:00 | disposition home or self-care (01) ==
LOC: SP 10:30
PROVIDERS: Family Provider Family Medicine; PCP Family Medicine; Referring Provider Nurse Practitioner Acute Care; Visit Provider Nurse Practitioner Acute Care
DX: J38.3 Other diseases of vocal cords (principal)
CPT/HCPCS: 92507; 92523

== ENCOUNTER → 2019-01-03 | Outpatient (CLI) | payer MEDICARE, OTHER, SELFPAY ==
[2018-11-01 09:13] VITALS: BMI 26.7
[2019-01-03 13:07] LABS: Albumin, Serum 3.7 g/dL (3.2-5.0); BUN 31 mg/dL (7-18); BUN/Creat Ratio 18.1 RATIO (10-20); Calcium,Total 9.3 mg/dL (8.5-10.1); Chloride 107 mmol/L (98-107); Creatinine, Serum 1.71 mg/dL (0.70-1.30); EST Glomerular Filtration Rate 43 mL/min (>60); Est Glom Filt Rate - Afr Amer 52 mL/min (>60); Glucose 83 mg/dL (74-106); Phosphorus 2.7 mg/dL (2.5-4.9); Potassium 4.3 mmol/L (3.5-5.1); Sodium Level 142 mmol/L (136-145)
== END | disposition home or self-care (01) ==
LOC: LAB.FUTURE 11:58
PROVIDERS: Family Provider Family Medicine; PCP Family Medicine; Visit Provider Internal Medicine Nephrology
DX: N18.3 Chronic kidney disease, stage 3 (moderate) (principal)
CPT/HCPCS: 36415; 80069

== ENCOUNTER → 2019-01-09 | Outpatient (CLI) | payer MEDICARE, OTHER, SELFPAY ==
[2019-01-09 08:43] VITALS: BMI 27.0
--- NOTE | 2019-01-09 10:01 | RAD_ITS ---
STUDY: X-RAY CHEST REASON FOR EXAM: Male, 63 years old. Shortness of breath TECHNIQUE: PA and lateral views of the chest. COMPARISON: 12/08/2017 FINDINGS: The lungs are clear and expanded. There is no demonstrated pleural abnormality. Normal size heart. Normal mediastinum and erwin. Normal visualized pulmonary arteries. Normal visualized aortic arch and descending thoracic aorta. There are diffuse degenerative changes of the visualized thoracic spine. Normal visualized ribs, clavicles, and shoulders. There is no demonstrated abnormality of the visualized soft tissue structures of the upper abdomen. RAD/Chest PA and Lateral IMPRESSION: No acute intrathoracic process. Electronically Signed: Viet Mcneill MD at 14:24 EDT Tel [phone], Service support ,
[2019-01-09 10:20] LABS: Anion Gap 4 (5-15); BUN 26 mg/dL (7-18); BUN/Creat Ratio 15.2 RATIO (10-20); Calcium,Total 9.3 mg/dL (8.5-10.1); Chloride 108 mmol/L (98-107); Creatinine, Serum 1.71 mg/dL (0.70-1.30); EST Glomerular Filtration Rate 43 mL/min (>60); Est Glom Filt Rate - Afr Amer 52 mL/min (>60); Glucose 110 mg/dL (74-106); Potassium 4.4 mmol/L (3.5-5.1); Sodium Level 141 mmol/L (136-145)
[2019-01-09 10:29] LABS: BNP,B-Type NATRIURETIC PEPTIDE 16.4 pg/mL (0-100)
== END | disposition home or self-care (01) ==
PROVIDERS: Family Provider Family Medicine; PCP Family Medicine; Referring Provider Nurse Practitioner Acute Care; Visit Provider Nurse Practitioner Acute Care
DX: R06.09 Other forms of dyspnea (principal)
CPT/HCPCS: 36415; 71046; 80048; 83880

== ENCOUNTER → 2019-02-01 12:31 | Outpatient (CLI) | payer MEDICARE, OTHER, SELFPAY ==
[2019-01-09 08:43] VITALS: BMI 27.0
--- NOTE | 2019-02-01 12:32 | ECHOCS_ITS ---
Version 2 Reason For Study: DYSPNEA Procedure This was a 2D Doppler, Color Flow transthoracic echocardiogram. Contrast injection was performed. The study was technically difficult. Exam performed in department. Left Ventricle Normal LV size. Left ventricular systolic function is normal. The estimated ejection fraction is 55 %. Transmitral and pulmonary venous doppler flow suggestive of impaired relaxation of left ventricle. No regional wall motion abnormalities noted. Right Ventricle Normal RV size. Normal systolic function. Atria Normal left atrium. Normal right atrium. Mitral Valve Normal mitral valve. Tricuspid Valve Normal tricuspid valve. Mild tricuspid valve insufficiency. Pulmonary artery systolic pressure is 29 mmHg. Aortic Valve The aortic valve is not well visualized. Pulmonic Valve Normal pulmonic valve. Great Vessels Normal aortic root. Pericardium/Pleural No pericardial effusion. Medication 22 gauge I.V. with prn adaptor inserted into right arm. Diluted definity 4.0ml given slow IV push to enhance endocardial definition. MMode/2D Measurements & Calculations LVIDd: 4.8 cm IVSd: 1.1 cm Ao root diam: 3.2 cm LVIDs: 2.6 cm LVPWd: 1.1 cm RVDd: 3.9 cm FS: 45.3 % LAV(MOD-bp): 42.9 ml LVAd ap4: 36.1 cm2 SV(MOD-sp4): 74.4 ml LAV(MOD-bp) Indexed: 19.4 ml/m2 EDV(MOD-sp4): 125.9 ml LAV(MOD-sp2): 49.1 ml EDV(sp4-el): 130.2 ml LAV(MOD-sp4): 35.0 ml LVAs ap4: 21.1 cm2 ESV(MOD-sp4): 51.5 ml ESV(sp4-el): 52.2 ml EF(MOD-sp4): 59.1 % EF(sp4-el): 59.9 % SV(sp4-el): 77.9 ml LA A4 area: 14.4 cm2 LA dimension(2D): 3.3 cm RA A4 area: 13.1 cm2 Time Measurements MV dec time: 0.36 sec Doppler Measurements & Calculations MV E max jeronimo: 57.3 cm/sec Lat Peak E' Jeronimo: 6.8 cm/sec Med Peak E' Jeronimo: 5.0 cm/sec MV A max jeronimo: 81.3 cm/sec E/E' lat: 8.5 E/E' med: 11.5 MV E/A: 0.71 Ao V2 max: 111.6 cm/sec LV V1 max: 116.1 cm/sec TR max jeronimo: 245.1 cm/sec Ao max P.0 mmHg LV V1 max P.4 mmHg TR max P.1 mmHg Interpretation Summary Normal LV size. Left ventricular systolic function is normal. The estimated ejection fraction is 55 %. Transmitral and pulmonary venous doppler flow suggestive of impaired relaxation of left ventricle Mild tricuspid valve insufficiency. Contrast injection was performed. Ordering Physician: Ruma Tijerina Referring Physician: FRANKIE JIM Performed By: Isabella Farrell, YARI, RVT
== END ==
PROVIDERS: Family Provider Family Medicine; PCP Family Medicine; Referring Provider Nurse Practitioner Acute Care; Visit Provider Nurse Practitioner Acute Care
DX: R06.09 Other forms of dyspnea (principal)
CPT/HCPCS: 93306; Q9957; A4216; C8929

== ENCOUNTER → 2019-03-08 08:49 | Outpatient (CLI) | payer MEDICARE, OTHER, SELFPAY ==
[2018-11-01 09:13] VITALS: BMI 26.7
[2019-02-19 09:35] VITALS: BMI 27.0
[2019-03-08 09:24] LABS: Hemoglobin 16.1 g/dL (13.0-16.5); Mean Corp Hgb Conc 33.5 g/dL (32-36); Mean Corpuscular Hgb 30.1 pg (27.0-32.0); Mean Corpuscular Volume 89.9 fL (80-94); Mean Platelet Vol. 9.4 fl (6.2-12.0); Platelet Count 224 K/mm3 (150-450); RBC Distribution Width CV 12.6 % (11.6-14.6); RBC Distribution Width SD 40.8 fl (35.1-43.9); Red Blood Count 5.34 M/mm3 (4.6-6.2); White Blood Count 6.6 K/mm3 (4.4-11.0)
[2019-03-08 09:49] LABS: Protein, Urine (Random) 15.8 mg/dL (<11.9); Protein:Creat Ratio 128 mg/g CRE (0-200)
[2019-03-08 10:07] LABS: Albumin, Serum 3.9 g/dL (3.2-5.0); BUN 26 mg/dL (7-18); BUN/Creat Ratio 14.9 RATIO (10-20); Calcium,Total 9.3 mg/dL (8.5-10.1); Chloride 104 mmol/L (98-107); Cholesterol 178 mg/dL (200); Creatinine, Serum 1.74 mg/dL (0.70-1.30); EST Glomerular Filtration Rate 42 mL/min (>60); Est Glom Filt Rate - Afr Amer 51 mL/min (>60); Glucose 107 mg/dL (74-106); High Density Lipoprotein 42 mg/dL; Phosphorus 2.9 mg/dL (2.5-4.9); Potassium 4.5 mmol/L (3.5-5.1); Sodium Level 138 mmol/L (136-145); Triglycerides 180 mg/dL; Very Low Density Lipoprotein 36 mg/dL (5-40)
== END ==
PROVIDERS: Nurse Practitioner Family; Family Provider Family Medicine; PCP Family Medicine; Referring Provider Internal Medicine Nephrology; Visit Provider Internal Medicine Nephrology
DX: E11.22 Type 2 diabetes mellitus with diabetic chronic kidney disease (principal); I12.9 Hypertensive chronic kidney disease with stage 1 through stage 4 chronic kidney disease, or unspecified chronic kidney disease; N18.3 Chronic kidney disease, stage 3 (moderate); E78.5 Hyperlipidemia, unspecified
CPT/HCPCS: 36415; 80061; 80069; 82570; 84156; 85027

== ENCOUNTER → 2019-04-09 12:47 | Outpatient (CLI) | payer MEDICARE, OTHER, SELFPAY ==
[2019-04-03 12:22] VITALS: BMI 28.0
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
== END ==
PROVIDERS: Family Provider Family Medicine; PCP Family Medicine; Referring Provider Psychiatry & Neurology Neurology; Visit Provider Psychiatry & Neurology Neurology
DX: M54.2 Cervicalgia (principal)
CPT/HCPCS: 72052

== ENCOUNTER → 2019-06-14 11:53 | Outpatient (CLI) | payer MEDICARE, OTHER, SELFPAY ==
[2019-05-02 09:58] VITALS: BMI 27.9
--- NOTE | 2019-06-14 17:44 | STRESSREP ---
Stress Test Report Exercise stress test. 64-year-old man with a history of presyncope, normal coronary arteries and conduction system abnormality. Stress protocol: Resting EKG demonstrates normal sinus rhythm with a right bundle branch block rate of 86 bpm is noted resting blood pressures 160/96 mmHg. The patient exercised according to regular Pradeep protocol for total duration of 5 minutes. The maximum heart rate attained was 164 bpm which was 106% of maximum workload heart rate the maximum workload was 7 metabolic equivalents. The patient appeared to maintain sinus rhythm throughout the recording. The patient maintained a right bundle branch block patent. The maximum workload was 7 metabolic equivalents. At approximately 5 minutes the patient complained of being very fatigued and lightheaded. This was associated with a blood pressure drop of 110/70 mmHg. No chest pain was noted. The test was terminated and the patient was monitored. Blood pressure improved. The maximum blood pressure was 160/98 mmHg. Conclusion 1 exercise stress test with no EKG criteria for ischemia. Sinus rhythm with right bundle branch block pattern noted. Mild hypotension noted with exercise. No other arrhythmias noted.
== END ==
PROVIDERS: PCP Family Medicine; Referring Provider Physician Assistant Medical; Visit Provider Physician Assistant Medical
DX: R94.31 Abnormal electrocardiogram [ECG] [EKG] (principal); I49.9 Cardiac arrhythmia, unspecified
CPT/HCPCS: 93017

== ENCOUNTER → 2019-07-05 11:47 | Outpatient (CLI) | payer MEDICARE, OTHER, SELFPAY ==
[2019-02-19 09:35] VITALS: BMI 27.0
[2019-05-02 09:58] VITALS: BMI 27.9
[2019-07-05 12:59] LABS: Albumin, Serum 3.7 g/dL (3.2-5.0); BUN 28 mg/dL (7-18); BUN/Creat Ratio 15.4 RATIO (10-20); Chloride 108 mmol/L (98-107); Creatinine, Serum 1.82 mg/dL (0.70-1.30); EST Glomerular Filtration Rate 40 mL/min (>60); Est Glom Filt Rate - Afr Amer 48 mL/min (>60); Glucose 90 mg/dL (74-106); Phosphorus 3.4 mg/dL (2.5-4.9); Potassium 4.6 mmol/L (3.5-5.1); Sodium Level 140 mmol/L (136-145)
[2019-07-05 14:17] LABS: Microalbumin,Random Urine 9.5 mg/L (NO RANGE EST.); Microalbumin:Creatinine Ratio 6.2 mg/g CRE (<30 mg/g CRE)
== END ==
PROVIDERS: Family Provider Family Medicine; PCP Family Medicine; Referring Provider Internal Medicine Nephrology; Visit Provider Internal Medicine Nephrology
DX: E11.22 Type 2 diabetes mellitus with diabetic chronic kidney disease (principal); N18.3 Chronic kidney disease, stage 3 (moderate)
CPT/HCPCS: 36415; 80069; 82043; 82570

== ENCOUNTER → 2019-10-30 11:55 | Outpatient (CLI) | payer MEDICARE, OTHER, SELFPAY ==
[2019-10-30 10:04] VITALS: BMI 28.8
--- NOTE | 2019-10-30 11:59 | CT_ITS ---
STUDY: CT BRAIN WITHOUT CONTRAST REASON FOR EXAM: Male, 64 years old. HX TIA, TIA SYMPTOMS 10/26/19 RADIATION DOSAGE (If Supplied By Facility): CTDIvol = ( 44.99 ) mGy, DLP = ( 779.24 ) mGycm TECHNIQUE: Transaxial CT imaging of the brain was performed without administration of intravenous contrast material. Individualized dose optimization techniques were used for this CT. COMPARISON: April 06, 2018 MRI of the brain FINDINGS: There is cerebral atrophy with widening of the extra-axial spaces and ventricular dilatation. There are areas of decreased attenuation within the white matter tracts of the supratentorial brain, consistent with microvascular disease changes. There is no intracranial hemorrhage. There are no findings of an acute ischemic infarction. Normal soft tissue structures. Normal visualized paranasal sinuses. CT/Brain/Head without Contrast IMPRESSION: Chronic involutional changes of the brain. Electronically Signed: Ryder Monsivais MD at 12:20 EDT Tel , Service support ,
[2019-10-30 13:15] LABS: Hematocrit 45.3 % (40-54); Hemoglobin 15.3 g/dL (13.0-16.5); Mean Corp Hgb Conc 33.8 g/dL (32-36); Mean Corpuscular Hgb 30.9 pg (27.0-32.0); Mean Corpuscular Volume 91.5 fL (80-94); Mean Platelet Vol. 9.7 fl (6.2-12.0); Platelet Count 235 K/mm3 (150-450); RBC Distribution Width CV 12.6 % (11.6-14.6); RBC Distribution Width SD 41.8 fl (35.1-43.9); Red Blood Count 4.95 M/mm3 (4.6-6.2); White Blood Count 8.1 K/mm3 (4.4-11.0)
[2019-10-30 13:44] LABS: Albumin, Serum 3.7 g/dL (3.2-5.0); BUN 21 mg/dL (7-18); Calcium,Total 9.3 mg/dL (8.5-10.1); Chloride 106 mmol/L (98-107); Creatinine, Serum 1.61 mg/dL (0.70-1.30); EST Glomerular Filtration Rate 46 mL/min (>60); Est Glom Filt Rate - Afr Amer 55 mL/min (>60); Glucose 68 mg/dL (74-106); Phosphorus 2.6 mg/dL (2.5-4.9); Potassium 4.4 mmol/L (3.5-5.1); Sodium Level 140 mmol/L (136-145)
== END ==
PROVIDERS: Internal Medicine Nephrology; PCP Family Medicine; Referring Provider Nurse Practitioner Family; Visit Provider Nurse Practitioner Family
DX: E11.9 Type 2 diabetes mellitus without complications (principal); Z86.73 Personal history of transient ischemic attack (TIA), and cerebral infarction without residual deficits
CPT/HCPCS: 36415; 70450; 80069; 85027

== ENCOUNTER → 2019-12-03 08:28 | Outpatient (CLI) | payer MEDICARE, OTHER, SELFPAY ==
[2019-11-07 15:40] VITALS: BMI 28.8
[2019-12-03 08:48] LABS: Absolute Lymphocyte Count 2.59 X10^3/uL (0.83-4.51); Absolute Neutrophil Count 4.1 X10^3/uL (2.0-7.7); Basophil# 0.02 X10^3/uL; Basophil% 0.3 % (0-1); Eosinophil# 0.07 X10^3/uL; Eosinophils% 0.9 % (0-5); Hematocrit 45.2 % (40-54); Hemoglobin 15.3 g/dL (13.0-16.5); Lymphocyte # 2.59 X10^3/ul (4.0); Lymphocyte % 34.4 % (19-41); Mean Corp Hgb Conc 33.8 g/dL (32-36); Mean Corpuscular Hgb 30.4 pg (27.0-32.0); Mean Corpuscular Volume 89.7 fL (80-94); Mean Platelet Vol. 9.5 fl (6.2-12.0); Monocyte# 0.77 X10^3/uL; Monocyte% 10.2 % (0-10); NRBC Flagged by Analyzer 0 % (0-5); Neutrophil # 4.05 X10^3/uL (2.7-7.7); Neutrophil % 53.8 % (47-70); Platelet Count 200 K/mm3 (150-450); RBC Distribution Width CV 12.4 % (11.6-14.6); RBC Distribution Width SD 40.4 fl (35.1-43.9); Red Blood Count 5.04 M/mm3 (4.6-6.2); White Blood Count 7.5 K/mm3 (4.4-11.0)
[2019-12-03 09:01] LABS: Anion Gap 4 (5-15); BUN 23 mg/dL (7-18); BUN/Creat Ratio 13.5 RATIO (10-20); Calcium,Total 8.7 mg/dL (8.5-10.1); Chloride 106 mmol/L (98-107); Creatinine, Serum 1.71 mg/dL (0.70-1.30); EST Glomerular Filtration Rate 43 mL/min (>60); Est Glom Filt Rate - Afr Amer 52 mL/min (>60); Glucose 119 mg/dL (74-106); Potassium 4.1 mmol/L (3.5-5.1); Sodium Level 137 mmol/L (136-145)
--- NOTE | 2019-12-04 17:46 | PCM.TILTTABL ---
- Summary Pre Test Resting HR: 83 Pre Test Resting BP: 154/94 Minimum Test HR: 82 Maximum Test HR: 129 Minimum Test BP: 0/0 Maximum Test BP: 154/94 Physician Tilt Table Report - Patient's Physicians Primary Care Physician: Sawyer Yan Indications/Diagnosis: Vertigo. Procedure Comments: The patient was brought into the noninvasive lab in the postabsorptive nonsedated state. Initial blood pressure and heart rate were obtained. The resting heart rate was noted to be 83 bpm with a right bundle branch block the initial blood pressure was 154/94 mmHg. The patient was then put in the 70 degree head upright tilt position. Patient maintained sinus rhythm throughout the recording. Patient complained of mild dizziness and anxiety. At the end of 20 minutes the patient was put back in the recumbent position. 0.4 mg of sublingual nitroglycerin was administered and the patient was put back in the head upright position. The initial heart rate was 180 bpm and then increased 229 bpm. The patient complained of being hot and clammy nauseated and passed out. Patient was then put back in the supine position with improvement in the heart rate to 104 bpm and a blood pressure 202/78 mmHg. The final heart rate was 98 bpm sinus rhythm with a right bundle branch block and the blood pressure 128/88 mmHg. Summary: The above is likely suggestive of orthostatic postural hypotension.
[2019-12-04 17:50] VITALS: BP 0/0; BP 154/94
== END ==
PROVIDERS: PCP Family Medicine
DX: R42 Dizziness and giddiness (principal)
CPT/HCPCS: 36415; 80048; 85025; 93660; J7040; A4216

== ENCOUNTER → 2020-02-05 12:03 | Outpatient (CLI) | payer MEDICARE, OTHER, SELFPAY ==
[2020-02-05 11:08] VITALS: BMI 27.9
--- NOTE | 2020-02-05 12:05 | RAD_ITS ---
STUDY: X-RAY RIGHT FOOT, SECOND TOE REASON FOR EXAM: Male, 64 year old. Right second toe pain, hit it against furniture 4 weeks ago TECHNIQUE: 4 view(s) of the toe were obtained. COMPARISON: None. FINDINGS: Normal visualized metatarsus. Normal metatarsophalangeal (M.T.P) joint. Normal interphalangeal joints. Nondisplaced linear fracture through the distal portion of the middle phalanx of the second toe. Soft tissue swelling RAD/Toe(s) Min 2 Views IMPRESSION: Nondisplaced linear fracture through the distal portion of the middle phalanx of the second toe. Electronically Signed: Virgil Luna, at 15:40 EDT , Service support ,
== END ==
PROVIDERS: PCP Family Medicine; Referring Provider Family Medicine; Visit Provider Family Medicine
DX: M79.674 Pain in right toe(s) (principal)
CPT/HCPCS: 73660

== ENCOUNTER 2020-02-26 10:30 | Outpatient (RCR) | payer MEDICARE, OTHER, SELFPAY ==
[2019-11-07 15:40] VITALS: BMI 28.8
--- NOTE | 2019-12-27 08:58 | HP.PTEVAL_ITS ---
Patient's Visit Information SHADIA BHATIA is a 64 year old M referred to Physical Therapy by FALGUNI AYALA with a diagnosis of vertigo. Date of Evaluation: 12/27/19 Physical Therapist: Paul Melendez DPT, OCS, CSCS - Visit Plan Frequency: 2x /Week Duration: 4-6 Weeks Plan: 2x/week for 4 weeks for: Adaptation and habituation progression of HEP and in clinic walking. 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 I pass out alot. Then gets migraines that last a couple days. Can't say the right words. Sometimes don't know where I am. I usually know when they are going to hit, not always. Last one was in the yard cleaning out a mower. Usually is out for a short time. Migraines can last two days and he has meds for them. Has h/o migraines. TIAs cause all of this according to patient. Gets lightheaded sometimes. Has to sit down or he will pass out. Needs to sit. this happens 2-3x/week. Strobes can set him off to a migraine. This has been going on for two and a half years. One time happened in [facility] walking. He has to take care of as her bones and joints lock up and she is having chemo. Has had EEG tests adn is having them but not on meds that he knows of. Tilt table test was done and he failed. Stress test one month ago and passed out. Dr. Warren has put hi through tests and has valve problems but nothing to address right now. Will see neurologist (who used to be Kendall, but will be new one) next Monday. Being treated currently with meds, maybe amitryptilline and Dr. Warren put on mtoprolol. On other meds also inclduing Xeralto. Has to be careful with activity especially pulling activiti es that bring on ight headedness and eventually migraines. Picking up limbs in yard can cause him to need a rest. Balance is normal in between episodes. Feels pretty normal between episodes except fro slight pressure in head. Has grandsons that he likes to hang out with. Basic aDLs are OK. When this happens , should take blood pressure and sugar. Onset of these spells was insidious 2 yrs ago. Sleeping is not great even on meds gets 5-6 hours. Retired Mar 2017 - Pain migraine Pain Intensity (Out of 10): 0 Pain Intensity Range: 0, 10 - Objective Walks normal and with good balance. VOR walkign is challenging and brings on gentle lightheadedness. Trasnfers are I. Positional changes: L HD more dizzy but no nystagmus. R HD OK. Up from both is OK. roll to side L>R slight lightheadedness trasniently. 180 turns: R slight dizzy and L more dizzy and both imbalanced. head to knee L:slight lightheaded, Up is imbalanced and feels off. Head to knee R: no problem, up from R knee slight, not as bad as left. Oculomotor: VOR 6/10 horiz lasting a number of seconds. pursuit and saccades are normal. - skew eye deviation. - ocular tilt. no nystagmus with gaze or head shake. Overall head movements with gaze stab seem to make much worse transiently adn head movements in general make him slightly light headed and unsteady feeling. - Balance Scores Functional Gait Assessment Score: 29 % Disability: 3.3400 CATSIB Score (Max score 120 seconds): 120 - Goals Goal 1:: Pt able to tolerate VOR 60 seconds without increased symptoms Goal Time Frame: 4-6 Weeks Goal 2:: VOR walking without hesitation Goal Time Frame: 4-6 Weeks Goal 3:: Pt feel 50% better in unsteady volume overall Goal Time Frame: 4-6 Weeks Goal 4:: DHI score less than 20 Goal Time Frame: 4-6 Weeks - Rehabilitation Potential Physical Therapy Diagnosis: Vertigo possible, unknown origin. Rehabilitation Potential: Questionable - Anticipated Interventions Patient/Client Instruction: Educate patient on: Condition, Plan of Care For the Purpose of:: To increase tolerance to activity/condition/position, To improve gait and locomotor functions Therapeutic Exercise to Include: Balance training Comment: adaptationa dn habituation For the Purpose of:: To increase tolerance to activity/condition/position, To improve ability of physical actions for home/community/work/leisure Thank you for the opportunity to evaluate your patient. For Medicare and Medicare HMO plans, please review the plan of care and approve it. It will need to be FAXED BACK to us at [phone] for Medicare purposes. For Medicare only, by signing this I certify the plan of care. Please let me know if there are questions or concerns regarding this plan of care. Physician Signature: Date:
--- NOTE | 2020-01-30 10:59 | HP.PTREVAL ---
FALGUNI AYALA, It has been my pleasure to treat SHADIA BHATIA over the last 6 visits for vertigo. Please see the progress note below for an update on the physical therapy plan of care! Subjective: Pretty good. One exercise bending over exercise is still problematic. It is hard on me. Doing 4-6 reps and takes a while to recoop, lightheadedness and dizzyness. Lightheaded for first two reps then gets dizzy after 4 reps and needs to sit and recover. It lasts 3-5 minutes. Coordination on VORx2 is not great but gives L eye HELTON. Gone after 3-4 minutes. Doing it up to 90 seconds. This is improving. Pushing the trash can can still be an issue . Yesterday was first day at full strength of HELTON meds. Objective/Function: VOR x 2 improving symptoms. Bending and recovering symptoms about the same. - B hallpike jaquelin adn roll test. Balance is excellent. Overall unlikely vestibular remaining but morgan are muddied by med changes. Pt slowly progressing adn appropriate to continue with questionable prognosis for further improvement. Plan Plan: f/u 3 weeks as needed to ensure progress or lack of progress, check oculaomotr, positional and MSQ...d/c if no changes Goals Goal 1:: Pt able to tolerate VOR 60 seconds without increased symptoms Goal Time Frame: 4-6 Weeks Goal Progress: Goal Met Goal 2:: VOR walking without hesitation Goal Time Frame: 4-6 Weeks Goal Progress: Goal Met Goal 3:: Pt feel 50% better in unsteady volume overall Goal Time Frame: 4-6 Weeks Goal Progress: Goal Met Goal 4:: DHI score less than 20 Goal Time Frame: 4-6 Weeks Goal Progress: Progressing Anticipated Interventions Patient/Client Instruction: Educate patient on: Condition, Plan of Care For the Purpose of:: To increase tolerance to activity/condition/position, To improve gait and locomotor functions Therapeutic Exercise to Include: Balance training Comment: adaptationa dn habituation For the Purpose of:: To increase tolerance to activity/condition/position, To improve ability of physical actions for home/community/work/leisure Please do not hesitate to contact me at [phone] by phone or if you have questions or concerns regarding this new plan of care! Sincerely, Paul Melendez, DPT, OCS, CSCS
--- NOTE | 2020-02-20 11:12 | HP.PTREVAL ---
Dr. Benjamin Fleming MD, It has been my pleasure to treat SHADIA BHATIA over the last 7 visits for vertigo. Please see the progress note below for an update on the physical therapy plan of care! Subjective: Just getting over cold. No covid. Dizzyness is no different than last time. Working in yard has made him dizzy and lost breath. Had a bad episode 5/10 at that time. Was able to carry on conversation while it was happening. BP at time was 86/58. Later was 114/74. Happened one time in 3 weeks and has worked in [employer] other times without problem in simlar circumstances. Failed tilt table test miserably. No real other symptoms other than BP up and down which can cause dizzy or lightheadedness transiently. Doing exercises and bedning is still tough on body and no change from 3 weeks ago. VOR x 2 is conquered. Objective/Function: Oculomotor unremarkable today, no nystagmus with gaze or head shake, Normal pursuit and saccades adn VOR without symptoms increase. MSQ was tough to evlauate after positional testing as he flet off. but no obvious new single poistional problems outside of L hallpike jaquelin which gives eye discomfort/blinking for about 10 seconds asymmetrical with R HD. Treated with Yung but no change afterward. - skew eye deviation, - ocular tilt. Balance is still OK. Appropriate for trial of BD ex based on testing but questionable prognosis. Plan Plan: f/u one more time 1-2 weeks if positional ex is helpful. May cancel if not changing. Pt is a confusing case not coming along as expected but is in appropriate neurologist hands who patient says is also frustrated. Goals Goal 1:: Pt able to tolerate VOR 60 seconds without increased symptoms Goal Time Frame: 4-6 Weeks Goal Progress: Goal Met Goal 2:: VOR walking without hesitation Goal Time Frame: 4-6 Weeks Goal Progress: Goal Met Goal 3:: Pt feel 50% better in unsteady volume overall Goal Time Frame: 4-6 Weeks Goal Progress: Goal Met Goal 4:: DHI score less than 20 Goal Time Frame: 4-6 Weeks Goal Progress: Not Progressing Goal 5:: Pt feel 90% better overall Goal Time Frame: 2 Weeks Goal Progress: NEW GOAL Anticipated Interventions Patient/Client Instruction: Educate patient on: Condition, Plan of Care For the Purpose of:: To increase tolerance to activity/condition/position, To improve gait and locomotor functions Therapeutic Exercise to Include: Balance training Comment: adaptationa dn habituation For the Purpose of:: To increase tolerance to activity/condition/position, To improve ability of physical actions for home/community/work/leisure Please do not hesitate to contact me at [phone] by phone or if you have questions or concerns regarding this new plan of care! Sincerely, Paul Melendez, DPT, OCS, CSCS
--- NOTE | 2020-02-26 10:52 | HP.PTDCSUM_ITS ---
It has been my pleasure to treat SHADIA BHATIA referred by Dr. Benjamin Fleming MD, with the diagnosis of vertigo for a total of 8 visit(s). Discharge Date: 02/26/20 Please see the following information for a summary of their discharge status. Subjective: Exercise taxed his equilibrium mostly standing up after being down on his side. Gets dizzy after 5-6 of them. Not every rep adn not all the time. Not just early on but yesterday it happened. Migraine the other day up to 12/29. Was doing yard work at the time. Will see neurologist this Monday. Thinks that ex is helpful and wants to keep doing it. Balance is worse after episodes. migraine Pain Intensity (Out of 10): 0 % Improvement: 72 Objective/Function: Walks well. - B hallpike jaquelin,s lightly more uncomforable eyes with R hallpike and feels lightheaded after B testing but no nystagmus or spinning. Has been through habituation and positional ex adn adaptation and has made some good improvements but progress has stagnated and ith symptoms being unusual and failure of tilt table test, patient appropriate to check back with neuro(Monday) Goal 1:: Pt able to tolerate VOR 60 seconds without increased symptoms Goal Progress: Goal Met Goal 2:: VOR walking without hesitation Goal Progress: Goal Met Goal 3:: Pt feel 50% better in unsteady volume overall Goal Progress: Goal Met Goal 4:: DHI score less than 20 Goal Progress: Not Progressing Goal 5:: Pt feel 90% better overall Goal Progress: Not Progressing Plan: d/c If there are questions or concerns regarding this patient's physical therapy, please feel free to call me at [phone]. Thank you for the referral of this patient. Sincerely, Paul Melendez, DPT, OCS, CSCS
== END 2020-02-26 19:00 | disposition home or self-care (01) ==
LOC: PT 10:30
PROVIDERS: PCP Family Medicine; Referring Provider Psychiatry & Neurology Neurology; Visit Provider Psychiatry & Neurology Neurology
DX: R42 Dizziness and giddiness (principal)
CPT/HCPCS: 97163; 97164; 97530

== ENCOUNTER → 2020-05-07 10:31 | Outpatient (CLI) | payer MEDICARE, OTHER, SELFPAY ==
[2019-10-30 10:04] VITALS: BMI 28.8
[2020-05-07 09:55] VITALS: BMI 28.8
[2020-05-07 12:55] LABS: Albumin, Serum 3.7 g/dL (3.2-5.0); BUN 22 mg/dL (7-18); BUN/Creat Ratio 11.2 RATIO (10-20); Calcium,Total 8.8 mg/dL (8.5-10.1); Chloride 109 mmol/L (98-107); Creatinine, Serum 1.96 mg/dL (0.70-1.30); EST Glomerular Filtration Rate 36 mL/min (>60); Est Glom Filt Rate - Afr Amer 44 mL/min (>60); Glucose 127 mg/dL (74-106); Phosphorus 2.4 mg/dL (2.5-4.9); Potassium 4.3 mmol/L (3.5-5.1); Sodium Level 141 mmol/L (136-145)
[2020-05-07 12:58] LABS: Protein, Urine (Random) 15.2 mg/dL (<11.9); Protein:Creat Ratio 104 mg/g CRE (0-200)
== END ==
PROVIDERS: PCP Family Medicine; Referring Provider Internal Medicine Nephrology; Visit Provider Internal Medicine Nephrology
DX: E11.22 Type 2 diabetes mellitus with diabetic chronic kidney disease (principal); N18.30 Chronic kidney disease, stage 3 unspecified
CPT/HCPCS: 36415; 80069; 82570; 84156

== ENCOUNTER 2020-06-10 13:39 | Outpatient (RCR) | payer MEDICARE, OTHER, SELFPAY ==
[2020-05-07 09:55] VITALS: BMI 28.8
[2020-06-10 15:38] LABS: BUN 18 mg/dL (7-18); BUN/Creat Ratio 11.1 RATIO (10-20); Calcium,Total 9.1 mg/dL (8.5-10.1); Chloride 105 mmol/L (98-107); Creatinine, Serum 1.62 mg/dL (0.70-1.30); EST Glomerular Filtration Rate 45 mL/min (>60); Est Glom Filt Rate - Afr Amer 55 mL/min (>60); Glucose 85 mg/dL (74-106); Phosphorus 2.5 mg/dL (2.5-4.9); Potassium 4.4 mmol/L (3.5-5.1); Sodium Level 138 mmol/L (136-145)
[2020-06-14 20:35] LABS: KEPPRA (LEVETIRACETAM) 9.4 ug/mL (10.0-40.0)
== END 2020-06-21 23:59 ==
LOC: BIMLAB 13:39
PROVIDERS: Nurse Practitioner Family; PCP Family Medicine; Referring Provider Internal Medicine Nephrology; Visit Provider Internal Medicine Nephrology
DX: N17.9 Acute kidney failure, unspecified (principal)
CPT/HCPCS: 36415; 80069; 80177

== ENCOUNTER 2020-07-07 15:35 | Outpatient (RCR) | payer MEDICARE, OTHER, SELFPAY ==
[2020-07-07 16:55] LABS: BUN 31 mg/dL (7-18); BUN/Creat Ratio 15.3 RATIO (10-20); Calcium,Total 9.2 mg/dL (8.5-10.1); Chloride 110 mmol/L (98-107); Creatinine, Serum 2.03 mg/dL (0.70-1.30); EST Glomerular Filtration Rate 35 mL/min (>60); Est Glom Filt Rate - Afr Amer 42 mL/min (>60); Glucose 92 mg/dL (74-106); Phosphorus 3.5 mg/dL (2.5-4.9); Potassium 4.3 mmol/L (3.5-5.1); Sodium Level 141 mmol/L (136-145)
== END 2020-07-19 23:59 ==
LOC: BIMLAB 15:35
PROVIDERS: PCP Family Medicine; Referring Provider Internal Medicine Nephrology; Visit Provider Internal Medicine Nephrology
DX: N17.9 Acute kidney failure, unspecified (principal)
CPT/HCPCS: 36415; 80069

== ENCOUNTER 2020-07-29 14:29 | Outpatient (RCR) | payer MEDICARE, OTHER, SELFPAY ==
[2020-07-29 17:31] LABS: Albumin, Serum 3.7 g/dL (3.2-5.0); BUN 30 mg/dL (7-18); BUN/Creat Ratio 16.6 RATIO (10-20); Calcium,Total 8.7 mg/dL (8.5-10.1); Chloride 109 mmol/L (98-107); Creatinine, Serum 1.81 mg/dL (0.70-1.30); EST Glomerular Filtration Rate 40 mL/min (>60); Est Glom Filt Rate - Afr Amer 48 mL/min (>60); Glucose 143 mg/dL (74-106); Potassium 3.9 mmol/L (3.5-5.1); Sodium Level 141 mmol/L (136-145)
== END 2020-08-19 23:59 ==
LOC: BIMLAB 14:29
PROVIDERS: PCP Family Medicine; Referring Provider Internal Medicine Nephrology; Visit Provider Internal Medicine Nephrology
DX: N17.9 Acute kidney failure, unspecified (principal)
CPT/HCPCS: 36415; 80069

== ENCOUNTER → 2020-11-11 10:56 | Outpatient (CLI) | payer MEDICARE, OTHER, SELFPAY ==
[2020-11-11 10:10] VITALS: BMI 28.6
[2020-11-11 12:29] LABS: Absolute Lymphocyte Count 1.78 X10^3/uL (0.83-4.51); Absolute Neutrophil Count 4.4 X10^3/uL (2.0-7.7); Basophil# 0.04 X10^3/uL; Basophil% 0.6 % (0-1); Eosinophil# 0.03 X10^3/uL; Eosinophils% 0.4 % (0-5); Hematocrit 45.8 % (40-54); Hemoglobin 15.7 g/dL (13.0-16.5); Lymphocyte # 1.78 X10^3/ul (0.83-4.51); Lymphocyte % 25.4 % (19-41); Mean Corp Hgb Conc 34.3 g/dL (32-36); Mean Corpuscular Hgb 32.6 pg (27.0-32.0); Mean Corpuscular Volume 95.2 fL (80-94); Mean Platelet Vol. 9.7 fl (6.2-12.0); Monocyte# 0.71 X10^3/uL; Monocyte% 10.1 % (0-10); NRBC Flagged by Analyzer 0 % (0-5); Neutrophil % 62.9 % (47-70); Platelet Count 201 K/mm3 (150-450); RBC Distribution Width CV 13.7 % (11.6-14.6); RBC Distribution Width SD 47.7 fl (35.1-43.9); Red Blood Count 4.81 M/mm3 (4.6-6.2)
[2020-11-11 13:04] LABS: AST(SGOT) 24 U/L (15-37); Alanine Aminotransfer ALT/SGPT 35 U/L (16-61); Albumin, Serum 3.6 g/dL (3.2-5.0); Alkaline Phosphatase 83 U/L (45-117); Anion Gap 6 (5-15); BUN 18 mg/dL (7-18); BUN/Creat Ratio 9.9 RATIO (10-20); Calcium,Total 9.1 mg/dL (8.5-10.1); Chloride 104 mmol/L (98-107); Cholesterol 210 mg/dL (200); Creatinine, Serum 1.82 mg/dL (0.70-1.30); EST Glomerular Filtration Rate 40 mL/min (>60); Est Glom Filt Rate - Afr Amer 48 mL/min (>60); Globulin 3.7 g/dL (2.2-4.2); Glucose 95 mg/dL (74-106); High Density Lipoprotein 57 mg/dL; Potassium 4.6 mmol/L (3.5-5.1); Protein, Total 7.3 g/dL (6.4-8.2); Sodium Level 140 mmol/L (136-145); T4 Free Direct 0.89 ng/dL (0.76-1.46); Triglycerides 317 mg/dL; Very Low Density Lipoprotein 63 mg/dL (5-40)
== END ==
PROVIDERS: PCP Family Medicine; Referring Provider Nurse Practitioner Family; Visit Provider Nurse Practitioner Family
DX: E11.22 Type 2 diabetes mellitus with diabetic chronic kidney disease (principal); I12.9 Hypertensive chronic kidney disease with stage 1 through stage 4 chronic kidney disease, or unspecified chronic kidney disease; N18.30 Chronic kidney disease, stage 3 unspecified; E78.5 Hyperlipidemia, unspecified; I95.1 Orthostatic hypotension
CPT/HCPCS: 36415; 80053; 80061; 84439; 84443; 85025

== ENCOUNTER → 2020-12-09 16:54 | Outpatient (CLI) | payer MEDICARE, OTHER, SELFPAY ==
[2020-11-11 10:10] VITALS: BMI 28.6
[2020-12-09 17:34] LABS: BUN 19 mg/dL (7-18); Creatinine, Serum 1.74 mg/dL (0.70-1.30); Glucose 89 mg/dL (74-106)
[2020-12-09 17:35] LABS: BUN/Creat Ratio 10.9 RATIO (10-20); Calcium,Total 9.1 mg/dL (8.5-10.1); Chloride 104 mmol/L (98-107); EST Glomerular Filtration Rate 42 mL/min (>60); Est Glom Filt Rate - Afr Amer 51 mL/min (>60); Phosphorus 2.4 mg/dL (2.5-4.9); Potassium 3.9 mmol/L (3.5-5.1); Sodium Level 137 mmol/L (136-145)
== END ==
PROVIDERS: PCP Family Medicine; Visit Provider Internal Medicine Nephrology
DX: E11.22 Type 2 diabetes mellitus with diabetic chronic kidney disease (principal); N18.32 Chronic kidney disease, stage 3b
CPT/HCPCS: 36415; 80069

== ENCOUNTER → 2020-12-10 15:52 | Outpatient (CLI) | payer MEDICARE, OTHER, SELFPAY ==
[2020-11-11 10:10] VITALS: BMI 28.6
[2020-12-10 17:28] LABS: Protein, Urine (Random) 11.2 mg/dL (<11.9); Protein:Creat Ratio 107 mg/g CRE (0-200)
== END ==
PROVIDERS: PCP Family Medicine; Referring Provider Internal Medicine Nephrology; Visit Provider Internal Medicine Nephrology
DX: E11.22 Type 2 diabetes mellitus with diabetic chronic kidney disease (principal); N18.32 Chronic kidney disease, stage 3b
CPT/HCPCS: 82570; 84156

== ENCOUNTER → 2020-12-17 09:32 | Outpatient (CLI) | payer MEDICARE, OTHER, SELFPAY ==
[2020-12-17 09:02] VITALS: BMI 28.6
[2020-12-17 12:24] LABS: PSA,Total - Annual Screen 8.07 ng/mL (0.00-4.00)
== END ==
PROVIDERS: PCP Family Medicine; Referring Provider Nurse Practitioner Family; Visit Provider Nurse Practitioner Family
DX: Z12.5 Encounter for screening for malignant neoplasm of prostate (principal)
CPT/HCPCS: 36415; 84153; G0103

== ENCOUNTER → 2021-02-05 09:53 | Outpatient (CLI) | payer MEDICARE, OTHER, SELFPAY | PROVIDERS: PCP Family Medicine; Referring Provider Urology; Visit Provider Urology | DX: N40.1 Benign prostatic hyperplasia with lower urinary tract symptoms (principal) | CPT/HCPCS: 36415; 84153 ==

== ENCOUNTER → 2021-04-13 14:17 | Outpatient (CLI) | payer MEDICARE, OTHER, SELFPAY ==
[2020-12-17 09:39] VITALS: BMI 28.6
[2021-04-13 15:37] LABS: Albumin, Serum 3.4 g/dL (3.2-5.0); BUN 18 mg/dL (7-18); BUN/Creat Ratio 10.7 RATIO (10-20); Calcium,Total 9.2 mg/dL (8.5-10.1); Chloride 104 mmol/L (98-107); Creatinine, Serum 1.68 mg/dL (0.70-1.30); EST Glomerular Filtration Rate 43 mL/min (>60); Est Glom Filt Rate - Afr Amer 53 mL/min (>60); Glucose 80 mg/dL (74-106); Phosphorus 2.3 mg/dL (2.5-4.9); Potassium 4.1 mmol/L (3.5-5.1); Sodium Level 137 mmol/L (136-145)
== END ==
PROVIDERS: PCP Family Medicine; Referring Provider Internal Medicine Nephrology; Visit Provider Internal Medicine Nephrology
DX: E11.22 Type 2 diabetes mellitus with diabetic chronic kidney disease (principal); N18.32 Chronic kidney disease, stage 3b
CPT/HCPCS: 36415; 80069

== ENCOUNTER → 2021-04-14 13:10 | Outpatient (CLI) | payer MEDICARE, OTHER, SELFPAY ==
[2021-04-14 15:42] LABS: Protein:Creat Ratio 127 mg/g CRE (0-200)
== END ==
PROVIDERS: PCP Family Medicine; Visit Provider Internal Medicine Nephrology
DX: E11.22 Type 2 diabetes mellitus with diabetic chronic kidney disease (principal); N18.32 Chronic kidney disease, stage 3b
CPT/HCPCS: 82570; 84156

== ENCOUNTER → 2021-05-03 11:47 | Outpatient (CLI) | payer MEDICARE, OTHER, SELFPAY ==
[2021-05-03 12:54] LABS: PTHIN 43.2 pg/mL (18.4-80.1)
== END ==
PROVIDERS: PCP Family Medicine; Visit Provider Internal Medicine Nephrology
DX: N18.30 Chronic kidney disease, stage 3 unspecified (principal)
CPT/HCPCS: 36415; 83970

== ENCOUNTER → 2021-12-01 | Outpatient (CLI) | payer MEDICARE, OTHER, SELFPAY ==
[2021-12-01 16:01] LABS: Albumin, Serum 3.5 g/dL (3.2-5.0); BUN 23 mg/dL (7-18); BUN/Creat Ratio 12.8 RATIO (10-20); Calcium,Total 9.1 mg/dL (8.5-10.1); Chloride 106 mmol/L (98-107); Creatinine, Serum 1.79 mg/dL (0.70-1.30); EST Glomerular Filtration Rate 40 mL/min (>60); Est Glom Filt Rate - Afr Amer 49 mL/min (>60); Glucose 116 mg/dL (74-106); Phosphorus 2.7 mg/dL (2.5-4.9); Potassium 4.7 mmol/L (3.5-5.1); Sodium Level 136 mmol/L (136-145)
== END | disposition home or self-care (01) ==
LOC: BIMLAB 13:59
PROVIDERS: PCP Family Medicine; Referring Provider Internal Medicine Nephrology; Visit Provider Internal Medicine Nephrology
DX: N18.32 Chronic kidney disease, stage 3b (principal)
CPT/HCPCS: 36415; 80069

== ENCOUNTER → 2022-02-14 | Outpatient (CLI) | payer MEDICARE, OTHER, SELFPAY ==
[2022-02-14 15:46] LABS: PSA,Total- Diagnostic 2.63 ng/mL (0.0-4.0)
== END | disposition home or self-care (01) ==
PROVIDERS: PCP Family Medicine; Visit Provider Urology
DX: R97.20 Elevated prostate specific antigen [PSA] (principal)
CPT/HCPCS: 36415; 84153

== ENCOUNTER → 2022-06-09 | Outpatient (CLI) | payer MEDICARE, OTHER, SELFPAY ==
[2022-06-09 16:40] LABS: Albumin, Serum 3.5 g/dL (3.2-5.0); BUN 25 mg/dL (7-18); BUN/Creat Ratio 13.2 RATIO (10-20); Calcium,Total 9.2 mg/dL (8.5-10.1); Chloride 106 mmol/L (98-107); EST Glomerular Filtration Rate 38 mL/min (>60); Est Glom Filt Rate - Afr Amer 45 mL/min (>60); Glucose 98 mg/dL (74-106); Phosphorus 2.7 mg/dL (2.5-4.9); Potassium 4.2 mmol/L (3.5-5.1); Sodium Level 139 mmol/L (136-145)
== END | disposition home or self-care (01) ==
LOC: BIMLAB 06-10 14:31
PROVIDERS: PCP Family Medicine; Referring Provider Internal Medicine Nephrology; Visit Provider Internal Medicine Nephrology
DX: N18.32 Chronic kidney disease, stage 3b (principal)
CPT/HCPCS: 36415; 80069

== ENCOUNTER → 2022-12-01 | Outpatient (CLI) | payer MEDICARE, OTHER, SELFPAY ==
[2022-12-01 16:07] LABS: Albumin, Serum 3.4 g/dL (3.2-5.0); BUN 19 mg/dL (7-18); BUN/Creat Ratio 10.3 RATIO (10-20); Chloride 106 mmol/L (98-107); Creatinine, Serum 1.85 mg/dL (0.70-1.30); EST Glomerular Filtration Rate 39 mL/min (>60); Est Glom Filt Rate - Afr Amer 47 mL/min (>60); Glucose 134 mg/dL (74-106); Phosphorus 2.3 mg/dL (2.5-4.9); Potassium 4.3 mmol/L (3.5-5.1); Sodium Level 139 mmol/L (136-145)
== END | disposition home or self-care (01) ==
LOC: BIMLAB 14:25
PROVIDERS: PCP Family Medicine; Referring Provider Internal Medicine Nephrology; Visit Provider Internal Medicine Nephrology
DX: N18.32 Chronic kidney disease, stage 3b (principal)
CPT/HCPCS: 36415; 80069

== ENCOUNTER → 2023-05-18 | Outpatient (CLI) | payer MEDICARE, OTHER, SELFPAY ==
[2023-05-18 15:53] LABS: AST(SGOT) 16 U/L (15-37); Alanine Aminotransfer ALT/SGPT 20 U/L (16-61); Albumin, Serum 3.5 g/dL (3.2-5.0); Alkaline Phosphatase 84 U/L (45-117); Bilirubin, Direct 0.12 mg/dL (0.00-0.30); Cholesterol 191 mg/dL (200); High Density Lipoprotein 53 mg/dL; Protein, Total 7.5 g/dL (6.4-8.2); Triglycerides 277 mg/dL; Very Low Density Lipoprotein 55 mg/dL (5-40)
== END | disposition home or self-care (01) ==
PROVIDERS: Nurse Practitioner Gerontology; PCP Family Medicine; Referring Provider Family Medicine; Visit Provider Family Medicine
DX: E78.5 Hyperlipidemia, unspecified (principal)
CPT/HCPCS: 36415; 80061; 80076

== ENCOUNTER → 2023-07-31 | Outpatient (CLI) | payer MEDICARE, OTHER, SELFPAY ==
[2023-07-31 15:50] LABS: Albumin, Serum 3.4 g/dL (3.2-5.0); BUN 25 mg/dL (7-18); BUN/Creat Ratio 13.1 RATIO (10-20); Calcium,Total 8.9 mg/dL (8.5-10.1); Chloride 100 mmol/L (98-107); Creatinine, Serum 1.91 mg/dL (0.70-1.30); EST Glomerular Filtration Rate 37 mL/min (>60); Est Glom Filt Rate - Afr Amer 45 mL/min (>60); Glucose 147 mg/dL (74-106); Phosphorus 3.4 mg/dL (2.5-4.9); Sodium Level 136 mmol/L (136-145)
== END | disposition home or self-care (01) ==
LOC: BIMLAB 14:06
PROVIDERS: PCP Family Medicine; Referring Provider Internal Medicine Nephrology; Visit Provider Internal Medicine Nephrology
DX: N18.32 Chronic kidney disease, stage 3b (principal)
CPT/HCPCS: 36415; 80069

== ENCOUNTER → 2023-08-23 | Outpatient (CLI) | payer MEDICARE, OTHER, SELFPAY ==
[2023-08-23 15:33] LABS: PSA,Total - Annual Screen 5.57 ng/mL (0.00-4.00)
== END | disposition home or self-care (01) ==
LOC: BIMLAB 14:17
PROVIDERS: PCP Family Medicine; Referring Provider Urology; Visit Provider Urology
DX: Z12.5 Encounter for screening for malignant neoplasm of prostate (principal)
CPT/HCPCS: 36415; 84153; G0103

== ENCOUNTER 2023-09-22 15:00 | Outpatient (RCR) | payer MEDICARE, OTHER, SELFPAY ==
--- NOTE | 2023-08-30 18:58 | HP.PTEVAL ---
Patient's Visit Information Visit Information Visit Information: SHADIA BHATIA is a 68 year old M referred to Physical Therapy by Dr. Sawyer Yan DO with a diagnosis of PD. Date of Evaluation: 08/30/23 Physical Therapist: KAREN Whalen Visit Plan Frequency: 3x /Week Duration: 3 Months Plan: ++Use a gait belt at all times++++ +++Pt can not lay flat++++ +++pt has passed out several times with no notice++++ 2-3X/ week for 3 months for progressive exercises starting with chair exercises working on strength, endurance, dual tasking, posture, and then progressing to standing balance, posture, strength, dual tasking and then progressing to gait training with HEP will be present during treatments Subjective Subjective: Pt was Dx with PD in . In November 2018 he had like a seizure and each one is different and he can not remember things and is disoriented. He has been doing PT up in [facility] since 2018. He has severe tremors and his brain controls his heart that pumps the blood and when he has an episode that stops the blood flow to the hear and he falls out on his face. He has knocked his teeth out and has lots of broken bones. He has orthostatic hypotension and some autonomic dysfunction. He was walking to the mailbox the other day and he just froze and had to stand for a little while. He is on several meds and he is refining it by himself. He was having episodes of falling everyday but now it has been a couple of months since one of the falling episodes. He is also having trouble with memory and occ tremors. He has trouble with curb steps, depth perception issue, trouble up out of a chair, stiff when rolling over in bed, he does not do steps. He feels like a migraine might come on soon. He gets migraines if he on his feet a lot. There are days he can walk around and other days he can't try to walk. He gets dizzy standing, walking, driving (the motion), elevators, Pain Headache: Pain Intensity (Out of 10): 2 Objective Objective: ++Use a gait belt at all times++++ +++Pt can not lay flat++++ Gait: walks with a straight cane with increase veering and small step length... by his side Standing balance.... unsteady and has a hard time righting himself. knees slightly bent Seated hip flex X 10 alternating in sitting causes pressure in R eye (as sits there the pressure is going down). Pt still after sitting for approx 5 min was there but barely. Sit to stand: uses arms to stand up and has to stand for 20 seconds to get his balance ( no dizziness) Gait: walks with a straight cane with increase veering and small step length... by his side Standing balance.... unsteady and has a hard time righting himself. knees slightly bent Seated hip flex X 10 alternating in sitting causes pressure in R eye (as sits there the pressure is going down). Pt still after sitting for approx 5 min was there but barely. Sit to stand: uses arms to stand up and has to stand for 20 seconds to get his balance ( no dizziness) LE MMT: R hip flex 29 and L hip flex 21 R knee ext 44 and L 48 R knee flex 48 and L 31 Sitting opposite arm and leg X 1 and then reverted back to same side Balance/Special Test Scores Lower Extremity Functional Score: 22 Goals Goal 1:: I HEP (starting with chair exercises and progressing) Goal Time Frame: 2-4 Weeks Goal 2:: Increase LE strength (at the time of the eval: ++Use a gait belt at all times++++ +++Pt can not lay flat++++ Gait: walks with a straight cane with increase veering and small step length... by his side Standing balance.... unsteady and has a hard time righting himself. knees slightly bent Seated hip flex X 10 alternating in sitting causes pressure in R eye (as sits there the pressure is going down). Pt still after sitting for approx 5 min was there but barely. Sit to stand: uses arms to stand up and has to stand for 20 seconds to get his balance ( no dizziness) LE MMT: R hip flex 29 and L hip flex 21 R knee ext 44 and L 48 R knee flex 48 and L 31) Goal Time Frame: 8-12 Weeks Goal 3:: Be able to complete 5 min of slow aerobic exercise without coming close to passing out Goal Time Frame: 6-8 Weeks Goal 4:: Be able to sit to stand X 10 in a row at a nice slow pace without feeling like passing out Goal Time Frame: 6-8 Weeks Goal 5:: Be able to do sitting opp arm and leg X 10 on each side without messing up Goal Time Frame: 6-8 Weeks Rehabilitation Potential Rehabilitation Potential: Fair Anticipated Interventions Patient/Client Instruction: Educate patient on: Condition and Plan of Care For the Purpose of:: To increase ROM, To improve nutrient delivery to tissue, To improve muscle performance and motor function, To improve ability to perform ADL's, To increase tolerance to activity/condition/position, To improve performance and independence with ADL's, To decrease level of supervision to perform tasks, To improve ability of physical actions for home/community/work/leisure, To improve gait and locomotor functions, To improve health of tissue, To improve balance, To improve safety with gait and To assume or resume ADL's Therapeutic Exercise to Include: Strength training, Endurance training, Balance training, Coordination, Body mechanics, Postural training, Flexibilty training, Gait and locomotor training, Neuromotor development, Active ROM, Dynamic Lumbar Stabilization and Scapular Strength/Stabilization For the Purpose of:: To increase ROM, To improve nutrient delivery to tissue, To improve muscle performance and motor function, To improve ability to perform ADL's, To increase tolerance to activity/condition/position, To improve performance and independence with ADL's, To decrease level of supervision to perform tasks, To improve ability of physical actions for home/community/work/leisure, To improve gait and locomotor functions, To improve health of tissue, To increase flexibility/ROM, To improve endurance, To improve balance and To improve safety with gait Functional Training to Include: Gait training For the Purpose of:: To improve gait and locomotor functions, To improve balance and To improve safety with gait Text: Thank you for the opportunity to evaluate your patient. For Medicare and Medicare HMO plans, please review the plan of care and approve it. It will need to be FAXED BACK to us at [phone] for Medicare purposes. For Medicare only, by signing this I certify the plan of care. Please let me know if there are questions or concerns regarding this plan of care. Physician Signature: Date:
--- NOTE | 2023-12-01 14:16 | HP.PTDCNRP_ITS ---
Patient Information Patient Information: SHADIA BHATIA was seen in my office for initial evaluation on 08/30/23. The following Plan of Care was established for this patient: POC Established Initial Frequency: 3x /Week Initial Duration: 3 Months Anticipated Interventions Patient/Client Instruction: Educate patient on: Condition and Plan of Care For the Purpose of:: To increase ROM, To improve nutrient delivery to tissue, To improve muscle performance and motor function, To improve ability to perform ADL's, To increase tolerance to activity/condition/position, To improve performance and independence with ADL's, To decrease level of supervision to perform tasks, To improve ability of physical actions for home/community/work/leisure, To improve gait and locomotor functions, To improve health of tissue, To improve balance, To improve safety with gait and To assume or resume ADL's Therapeutic Exercise to Include: Strength training, Endurance training, Balance training, Coordination, Body mechanics, Postural training, Flexibilty training, Gait and locomotor training, Neuromotor development, Active ROM, Dynamic Lumbar Stabilization and Scapular Strength/Stabilization For the Purpose of:: To increase ROM, To improve nutrient delivery to tissue, To improve muscle performance and motor function, To improve ability to perform ADL's, To increase tolerance to activity/condition/position, To improve performance and independence with ADL's, To decrease level of supervision to perform tasks, To improve ability of physical actions for home/community/work/leisure, To improve gait and locomotor functions, To improve health of tissue, To increase flexibility/ROM, To improve endurance, To improve balance and To improve safety with gait Functional Training to Include: Gait training For the Purpose of:: To improve gait and locomotor functions, To improve balance and To improve safety with gait Last Seen Last Seen: This patient was last seen in our office 09/27/23. Pertinent comments regarding their Physical therapy will appear below: KAMARI PT... back to Dr due to hitting his head from fall At this point I will be discontinuing this patient from physical therapy. I wou ld be happy to see this patient again in the future if found appropriate by the physician. Thank you! Gale Pal, MPT Balance/Gait/Functional tests Balance/Special Test Scores Lower Extremity Functional Score: 22
== END 2023-09-22 19:00 | disposition home or self-care (01) ==
LOC: PT 15:00
PROVIDERS: PCP Family Medicine; Referring Provider Family Medicine; Visit Provider Family Medicine
DX: G20.A1 Parkinson's disease without dyskinesia, without mention of fluctuations (principal)
CPT/HCPCS: 97110; 97162

== ENCOUNTER → 2023-12-05 | Outpatient (CLI) | payer MEDICARE, OTHER, SELFPAY ==
[2023-12-05 14:10] LABS: Erythrocyte Sedimentation Rate 7 mm/hr (0-20)
[2023-12-05 14:50] LABS: ALB/GLOB Ratio 0.9 RATIO (0.9-2.4); AST(SGOT) 16 U/L (15-37); Alanine Aminotransfer ALT/SGPT 26 U/L (16-61); Albumin, Serum 3.5 g/dL (3.2-5.0); Alkaline Phosphatase 75 U/L (45-117); Anion Gap 6 (5-15); BUN 20 mg/dL (7-18); BUN/Creat Ratio 10.4 RATIO (10-20); CRP < 2.90 mg/L (0.0-3.0); Calcium,Total 9.2 mg/dL (8.5-10.1); Chloride 106 mmol/L (98-107); Creatinine, Serum 1.92 mg/dL (0.70-1.30); EST Glomerular Filtration Rate 37 mL/min (>60); Est Glom Filt Rate - Afr Amer 45 mL/min (>60); Globulin 3.8 g/dL (2.2-4.2); Glucose 128 mg/dL (74-106); Potassium 4.1 mmol/L (3.5-5.1); Protein, Total 7.3 g/dL (6.4-8.2); Sodium Level 138 mmol/L (136-145); Thyroid Stim Hormone (TSH) 1.68 uIU/mL (0.358-3.74)
[2023-12-05 15:37] LABS: Vitamin B12 491 pg/mL (211-911)
[2023-12-07 17:08] LABS: Alpha-1-Globulins 0.2 g/dL (0.0-0.4); Alpha-2-Globulins 0.5 g/dL (0.4-1.0); Gamma Globulin 0.8 g/dL (0.4-1.8); Immunoglobulin A 443 mg/dL (61-437); Immunoglobulin G 1025 mg/dL (603-1613); Immunoglobulin M 56 mg/dL (20-172); PROEL- TOTAL PROTEIN 6.7 g/dL (6.0-8.5)
[2023-12-09 07:08] LABS: Arsenic 7245 1 ug/L (0-9); Lead, Blood 1.2 ug/dL (0.0-3.4); Mercury, Blood 85324 < 1.0 ug/L (0.0-14.9); PROELU- Albumin, Urine 49.5 % (.); PROELU- Alpha-1-Globulin,Ur 5.8 % (.); PROELU- Alpha-2-Globulin,Ur 13.6 % (.); PROELU- Beta Globulin, Ur 19.4 % (.); PROELU- Gamma Globulin, Ur 11.7 % (.); Total Protein, Ur 11.5 mg/dL (Not Estab.)
== END | disposition home or self-care (01) ==
PROVIDERS: PCP Family Medicine; Referring Provider Psychiatry & Neurology Neurology; Visit Provider Psychiatry & Neurology Neurology
DX: I95.1 Orthostatic hypotension (principal); R20.2 Paresthesia of skin
CPT/HCPCS: 36415; 80053; 82175; 82607; 82784; 83655; 83825; 84165; 84166; 84443; 85652; 86140; 86334

== ENCOUNTER → 2023-12-18 | Outpatient (CLI) | payer MEDICARE, OTHER, SELFPAY ==
--- NOTE | 2023-12-18 14:00 | MRI_ITS ---
EXAM: MR HEAD WITHOUT INTRAVENOUS CONTRAST CLINICAL INDICATION: DISORDERS OF THE BRAIN TECHNIQUE: Multiplanar and multisequence MR images of the brain were obtained without intravenous contrast. COMPARISON: MRI April 06, 2018 , noted cerebral volume loss, white matter changes, no acute abnormality. CT October 30, 2019. FINDINGS: BRAIN AND EXTRA-AXIAL SPACES: There is no restricted diffusion. No evidence of acute CVA. Similar degree of cerebral volume loss with mild hydrocephalus ex vacuo, and similar mild high signal intensity in the deep periventricular white matter inversion recovery images. Similar distribution and size of relatively few subcortical high signal white matter foci superior frontal lobes and similar small chronic infarct in the right posterior-superior frontal lobe. No evidence of amyloidosis or microhemorrhages on susceptibility images. No intracranial mass or mass effect. Posterior fossa structures are unremarkable. Basal cisterns are patent. SELLA: Unremarkable. Normal sella turcica, pituitary gland, infundibular stalk, optic chiasm and hypothalamus. AUDITORY SYSTEM: Unremarkable. The internal auditory canals are patent. BONES/JOINTS: Unremarkable. No discrete lytic or blastic abnormalities. SINUSES: Small mucous retention cyst in the right maxillary sinus floor. MASTOID AIR CELLS: Unremarkable as visualized. Clear. ORBITS: Unremarkable as visualized. Both globes, extraocular muscles, optic nerves and retrobulbar fat appear unremarkable. VASCULATURE: Unremarkable as visualized. Normal flow voids in the major intracranial circulation. MRI/Brain without Contrast IMPRESSION: 1. No acute intracranial abnormality. 2. 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 Electronically Signed: Elisa Helm MD at 6:08 EDT ,
== END | disposition home or self-care (01) ==
LOC: MRI 13:25
PROVIDERS: PCP Family Medicine; Referring Provider Psychiatry & Neurology Neurology; Visit Provider Psychiatry & Neurology Neurology
DX: G93.89 Other specified disorders of brain (principal)
CPT/HCPCS: 70551

== ENCOUNTER → 2024-03-11 | Outpatient (CLI) | payer MEDICARE, OTHER, SELFPAY | END | disposition home or self-care (01) | LOC: PSN 12:33 | PROVIDERS: PCP Family Medicine; Referring Provider Nurse Practitioner Acute Care; Visit Provider Nurse Practitioner Acute Care | DX: R06.02 Shortness of breath (principal) | CPT/HCPCS: 94060; 94726; 94729 ==

== ENCOUNTER → 2024-03-13 | Outpatient (CLI) | payer MEDICARE, OTHER, SELFPAY ==
[2024-03-13 12:30] VITALS: PULSE 102; PULSE 104; PULSE 107; PULSE 78; PULSE 93; PULSE 99; O2SAT 96; O2SAT 97; O2SAT 98
--- NOTE | 2024-03-13 12:43 | CPS ---
pt had one episode that he had to sit and rest . Has hx of randomly passing out without warning.
--- NOTE | 2024-03-20 17:24 | PCM.PSN.6M ---
PSN 6 Minute Walk Test 6 Minute Walk Test 6 Minute Walk Test: 6 Minute Walk Test PSN:6-Minute Walk Test Start: 03/13/24 12:32 Freq: Status: Active Protocol: RESP.6MINW Document 03/13/24 12:30 EW (Rec: 03/13/24 12:44 EW [id number]) 6 Minute Walk Test Date Performed 03/13/24 Time Performed 12:30 Height 6 ft 1 in Weight: 99.79 kg Weight in Pounds 220.[address]: Ruma Tijerina [employer]ER Assistive device used: Cane Pre-test Oxygen Delivery Method Room Air Pulse Ox (%) 96 Pulse Rate (60-100 beats/min) 93 Dyspnea Angélica Scale (0-10) 0.5 Exertion Angélica Scale (6-20) 6 1st minute Oxygen Delivery Method Room Air Pulse Ox (%) 96 Pulse Rate (60-100 beats/min) 78 2nd minute Oxygen Delivery Method Room Air Pulse Ox (%) 96 Pulse Rate (60-100 beats/min) 107 H 3rd minute Oxygen Delivery Method Room Air Pulse Ox (%) 97 Pulse Rate (60-100 beats/min) 99 Number of Rests Taken 1 4th minute Oxygen Delivery Method Room Air Pulse Ox (%) 97 Pulse Rate (60-100 beats/min) 104 H 5th minute Oxygen Delivery Method Room Air Pulse Ox (%) 98 Pulse Rate (60-100 beats/min) 104 H 6th minute Oxygen Delivery Method Room Air Pulse Ox (%) 97 Pulse Rate (60-100 beats/min) 102 H Post-test Oxygen Delivery Method Room Air Pulse Ox (%) 97 Pulse Rate (60-100 beats/min) 102 H Dyspnea Angélica Scale (0-10) 1 Exertion Angélica Scale (6-20) 14 Full Laps Walked 7 Partial Lap, Number of Tiles Walked 40 Total Distance Walked (ft) 453 03/13/24 12:43 Cardiopulmonary Services by Mariann Dueñas pt had one episode that he had to sit and rest . Has hx of randomly passing out without warning. Initialized on 03/13/24 12:43 - END OF NOTE Interpretation Interpretation: The patient was able to ambulate only 453 feet over the course of 6 minutes on room air with the assistance of a cane and 1 rest. Patient's initial saturation was 96% and there was no significant desaturation during testing. Patient's peak heart rate was noted at 104 bpm. Patient reportedly had a presyncopal event during testing, limiting distance traveled. These findings are consistent with a musculoskeletal limitation to exercise tolerance. Recommendations Recommendations: No supplemental oxygen is indicated at this time.
--- NOTE | 2024-03-22 15:38 | WT_ITS ---
PSN 6 Minute Walk Test 6 Minute Walk Test 6 Minute Walk Test: 6 Minute Walk Test PSN:6-Minute Walk Test Start: 03/13/24 12:32 Freq: Status: Active Protocol: RESP.6MINW Document 03/13/24 12:30 EW (Rec: 03/13/24 12:44 EW [id number]) 6 Minute Walk Test Date Performed 03/13/24 Time Performed 12:30 Height 6 ft 1 in Weight: 99.79 kg Weight in Pounds 220.[address]: Ruma Tijerina [employer] Assistive device used: Cane Pre-test Oxygen Delivery Method Room Air Pulse Ox (%) 96 Pulse Rate (60-100 beats/min) 93 Dyspnea Angélica Scale (0-10) 0.5 Exertion Angélica Scale (6-20) 6 1st minute Oxygen Delivery Method Room Air Pulse Ox (%) 96 Pulse Rate (60-100 beats/min) 78 2nd minute Oxygen Delivery Method Room Air Pulse Ox (%) 96 Pulse Rate (60-100 beats/min) 107 H 3rd minute Oxygen Delivery Method Room Air Pulse Ox (%) 97 Pulse Rate (60-100 beats/min) 99 Number of Rests Taken 1 4th minute Oxygen Delivery Method Room Air Pulse Ox (%) 97 Pulse Rate (60-100 beats/min) 104 H 5th minute Oxygen Delivery Method Room Air Pulse Ox (%) 98 Pulse Rate (60-100 beats/min) 104 H 6th minute Oxygen Delivery Method Room Air Pulse Ox (%) 97 Pulse Rate (60-100 beats/min) 102 H Post-test Oxygen Delivery Method Room Air Pulse Ox (%) 97 Pulse Rate (60-100 beats/min) 102 H Dyspnea Angélica Scale (0-10) 1 Exertion Angélica Scale (6-20) 14 Full Laps Walked 7 Partial Lap, Number of Tiles Walked 40 Total Distance Walked (ft) 453 03/13/24 12:43 Cardiopulmonary Services by Mariann Dueñas pt had one episode that he had to sit and rest . Has hx of randomly passing out without warning. Initialized on 03/13/24 12:43 - END OF NOTE Interpretation Interpretation: The patient was able to ambulate only 453 feet over the course of 6 minutes on room air with the assistance of a cane and 1 rest. Patient's initial saturation was 96% and there was no significant desaturation during testing. Patient's peak heart rate was noted at 104 bpm. Patient reportedly had a presyncopal event during testing, limiting distance traveled. These findings are consistent with a musculoskeletal limitation to exercise tolerance. Recommendations Recommendations: No supplemental oxygen is indicated at this time.
== END | disposition home or self-care (01) ==
LOC: PSN 12:06
PROVIDERS: PCP Family Medicine; Referring Provider Nurse Practitioner Acute Care; Visit Provider Nurse Practitioner Acute Care
DX: R06.02 Shortness of breath (principal)
CPT/HCPCS: 94618

== ENCOUNTER → 2024-04-30 | Outpatient (CLI) | payer MEDICARE, OTHER, SELFPAY ==
[2024-04-30 16:28] LABS: Albumin, Serum 3.5 g/dL (3.2-5.0); BUN 20 mg/dL (7-18); BUN/Creat Ratio 11.1 RATIO (10-20); Calcium,Total 9.4 mg/dL (8.5-10.1); Chloride 105 mmol/L (98-107); EST Glomerular Filtration Rate 40 mL/min (>60); Est Glom Filt Rate - Afr Amer 48 mL/min (>60); Glucose 153 mg/dL (74-106); Phosphorus 2.6 mg/dL (2.5-4.9); Potassium 4.4 mmol/L (3.5-5.1); Sodium Level 138 mmol/L (136-145)
[2024-04-30 19:34] LABS: Microalbumin,Random Urine 12.8 mg/L (NO RANGE EST.); Microalbumin:Creatinine Ratio 28.1 mg/g CRE (<30 mg/g CRE)
== END | disposition home or self-care (01) ==
LOC: BIMLAB 13:05
PROVIDERS: PCP Family Medicine; Referring Provider Internal Medicine Nephrology; Visit Provider Internal Medicine Nephrology
DX: N17.9 Acute kidney failure, unspecified (principal); E11.9 Type 2 diabetes mellitus without complications
CPT/HCPCS: 36415; 80069; 82043; 82570

== ENCOUNTER → 2024-08-05 | Outpatient (CLI) | payer MEDICARE, SELFPAY ==
[2024-08-05 17:28] LABS: Absolute Lymphocyte Count 2.53 X10^3/uL (0.83-4.51); Absolute Neutrophil Count 6.2 X10^3/uL (2.0-7.7); Basophil# 0.03 X10^3/uL; Basophil% 0.3 % (0-1); Eosinophil# 0.06 X10^3/uL; Eosinophils% 0.6 % (0-5); Hematocrit 41.9 % (40-54); Hemoglobin 14.8 g/dL (13.0-16.5); Lymphocyte # 2.53 X10^3/ul (0.83-4.51); Lymphocyte % 26.3 % (19-41); Mean Corp Hgb Conc 35.3 g/dL (32-36); Mean Corpuscular Volume 90.5 fL (80-94); Mean Platelet Vol. 9.5 fl (6.2-12.0); Monocyte# 0.76 X10^3/uL; Monocyte% 7.9 % (0-10); NRBC Flagged by Analyzer 0 % (0-5); Neutrophil # 6.16 X10^3/uL (2.7-7.7); Neutrophil % 64.1 % (47-70); Platelet Count 208 K/mm3 (150-450); RBC Distribution Width CV 12.8 % (11.6-14.6); RBC Distribution Width SD 41.1 fl (35.1-43.9); Red Blood Count 4.63 M/mm3 (4.6-6.2); White Blood Count 9.6 K/mm3 (4.4-11.0)
[2024-08-05 18:37] LABS: ALB/GLOB Ratio 1.4 RATIO (0.9-2.4); AST(SGOT) 23 U/L (<=37); Alanine Aminotransfer ALT/SGPT 24 U/L (<=46); Albumin, Serum 4.1 g/dL (3.4-4.8); Alkaline Phosphatase 77 U/L (40-129); Anion Gap 13 (5-15); BUN 24 mg/dL (4-19); BUN/Creat Ratio 13.9 RATIO (10-20); Calcium,Total 9.3 mg/dL (7.6-11.0); Carbon Dioxide 22.9 mmol/L (21.0-32.0); Chloride 103 mmol/L (98-108); Cholesterol 197 mg/dL (<=200); Creatinine, Serum 1.71 mg/dL (0.70-1.20); EST Glomerular Filtration Rate 42 (>60); Globulin 2.9 g/dL (2.2-4.2); Glucose 99 mg/dL (70-99); High Density Lipoprotein 49 mg/dL; Low Density Lipoprotein Calc. 83 mg/dL; Potassium 4.5 mmol/L (3.3-5.1); Pro- Brain NATRIURETIC PEPTIDE 224 pg/mL (<=900); Sodium Level 139 mmol/L (133-145); Total Bilirubin 0.33 mg/dL (0.00-1.30); Triglycerides 322 mg/dL; Very Low Density Lipoprotein 64 mg/dL (5-40)
== END | disposition home or self-care (01) ==
LOC: LAB 16:07
PROVIDERS: PCP Family Medicine; Referring Provider Student in an Organized Health Care Education/Training Program; Visit Provider Student in an Organized Health Care Education/Training Program
DX: E78.5 Hyperlipidemia, unspecified (principal); R06.02 Shortness of breath
CPT/HCPCS: 36415; 80053; 80061; 83880; 85025

== ENCOUNTER → 2024-08-21 | Outpatient (CLI) | payer MEDICARE, SELFPAY ==
--- NOTE | 2024-08-21 12:38 | ECHOCS_ITS ---
Reason For Study Reason For Study: SHORTNESS OF BREATH Procedure This was a 2D Doppler, Color Flow transthoracic echocardiogram. The study was technically difficult. Due to poor apical accoustic windows. Contrast injection was performed. Exam performed in department. Left Ventricle Normal LV size. Mild concentric left ventricular hypertrophy. Left ventricular systolic function is normal. The left ventricular ejection fraction is 65 %. No regional wall motion abnormalities noted. Right Ventricle Normal RV size. Normal systolic function. Atria Normal left atrium. Normal right atrium. Mitral Valve Normal mitral valve. Tricuspid Valve Normal tricuspid valve. Mild (1+) tricuspid valve insufficiency. Pulmonary artery systolic pressure is 25 mmHg. Aortic Valve Trisinus/trileaflet aortic valve. Pulmonic Valve The pulmonic valve is not well visualized. Great Vessels Normal aortic root. The pulmonary artery is normal size. Normal inferior vena cava. Pericardium/Pleural No pericardial effusion. Medication 22 gauge I.V. with prn adaptor inserted into left arm. Diluted definity 2.0ml given slow IV push to enhance endocardial definition. MMode/2D Measurements & Calculations LVIDd: 4.4 cm IVSd: 1.3 cm Ao root diam: 4.2 cm LVIDs: 3.0 cm LVPWd: 1.4 cm RVDd: 2.8 cm FS: 32.8 % LAV(MOD-bp): 45.2 ml LVAd ap4: 28.2 cm2 LVAd ap2: 23.2 cm2 LAV(MOD-bp) Indexed: 19.9 ml/m2 LVLd ap4: 8.5 cm LVLd ap2: 8.4 cm LAV(MOD-sp2): 49.4 ml EDV(MOD-sp4): 75.5 ml EDV(MOD-sp2): 54.1 ml LAV(MOD-sp4): 40.9 ml EDV(sp4-el): 79.1 ml EDV(sp2-el): 54.7 ml LVAs ap4: 15.4 cm2 LVAs ap2: 13.1 cm2 LVLs ap4: 7.5 cm LVLs ap2: 6.8 cm ESV(MOD-sp4): 26.7 ml ESV(MOD-sp2): 21.0 ml ESV(sp4-el): 26.9 ml ESV(sp2-el): 21.3 ml EF(MOD-sp4): 64.7 % EF(MOD-sp2): 61.3 % EF(sp4-el): 66.0 % SV(MOD-sp4): 48.9 ml SV(MOD-sp2): 33.2 ml SV(sp4-el): 52.2 ml SI(MOD-sp4): 21.5 ml/m2 SI(MOD-sp2): 14.6 ml/m2 LA A4 area: 17.0 cm2 LA dimension(2D): 3.8 cm RA A4 area: 15.4 cm2 TAPSE: 1.9 cm Time Measurements MV dec time: 0.32 sec Doppler Measurements & Calculations MV E max jeronimo: 56.9 cm/sec Lat Peak E' Jeronimo: 6.5 cm/sec Med Peak E' Jeronimo: 5.4 cm/sec MV A max jeronimo: 71.3 cm/sec E/E' lat: 8.8 E/E' med: 10.6 MV E/A: 0.80 MV V2 max: 98.4 cm/sec MV P1/2t max jeronimo: 64.7 cm/sec Ao V2 max: 98.6 cm/sec MV max P.9 mmHg MV P1/2t: 93.4 msec Ao max P.9 mmHg MV V2 mean: 48.7 cm/sec MV dec slope: 203.0 cm/sec2 Ao V2 mean: 81.0 cm/sec MV mean P.1 mmHg MVA(P1/2t): 2.4 cm2 Ao mean P.7 mmHg MV V2 VTI: 24.7 cm Ao V2 VTI: 22.2 cm AV (velocity ratio): 0.94 LV V1 max: 97.2 cm/sec PA V2 max: 75.1 cm/sec TR max jeronimo: 237.2 cm/sec LV V1 max P.8 mmHg PA V2 mean: 48.9 cm/sec TR max P.5 mmHg LV V1 mean P.2 mmHg LV V1 mean: 71.3 cm/sec LV V1 VTI: 20.8 cm ECHO/Echo Complete W/ Contrast Interpretation Summary Normal LV size. Left ventricular systolic function is normal. The left ventricular ejection fraction is 65 %. Contrast injection was performed. Ordering Physician: James Vyas Referring Physician: Sawyer Yan Performed By: Rachel Barbosa, YARI, RVT
== END | disposition home or self-care (01) ==
PROVIDERS: PCP Family Medicine; Referring Provider Student in an Organized Health Care Education/Training Program; Visit Provider Student in an Organized Health Care Education/Training Program
DX: R06.02 Shortness of breath (principal)
CPT/HCPCS: 93306; Q9957; A4216; C8929

== ENCOUNTER 2024-10-19 02:56 | Emergency (ER) | payer MEDICARE, SELFPAY ==
[2024-10-19] VITALS (18 sets, daily range): BP systolic 47–243; BP diastolic 35–118; PULSE 0–93; RESP 0–20; TEMP 35.3–35.5; O2SAT 79–93; BMI 34.2
[2024-10-19] MEDS: 0.9% Normal Saline (1000mL) 1,000 ML 999 ML IV (03:01)
[2024-10-19] MEDS: Norepinephrine Bit/0.9% NaCl 8 MG/250 ML IV.SOLN 9.4 MG CONT INF (03:11)
[2024-10-19] MEDS: Sodium Bicarbonate 8.4% 50 ML Syringe 50 MEQ IV ×2 (03:12→03:15)
--- NOTE | 2024-10-19 03:15 | EKG12_ITS ---
Test Reason : UNRESPONSIVE Blood Pressure : */* mmHG Vent. Rate : 70 BPM Atrial Rate : 70 BPM P-R Int : 228 ms QRS Dur : 198 ms QT Int : 414 ms P-R-T Axes : 63 241 13 degrees QTcB Int : 447 ms Sinus rhythm with sinus arrhythmia with 1st degree A-V block Right bundle branch block Abnormal ECG Confirmed by Phu Wallis ([id number]), newspaper photo editor AMRITA SCHMITZ ([id number]) on 10/21/2024 10:51:30 AM Referred By: ESAU Confirmed By: Phu Wallis
[2024-10-19] MEDS: Magnesium Sulfate 2 GM in Syringe 1 EACH IV (03:16)
--- NOTE | 2024-10-19 03:46 | ED.RN ---
Time of called by Dr. Hardin at [id number]
--- NOTE | 2024-10-19 03:47 | ED.RN ---
Patient received 1L normal saline, 1.41ml of levophed, 2 amps of sodium bicarb, 2gm (4ml) of magnesium sulfate and one dose of epinephrine while in ER. He received 100ml amio drop and 2 epinephrines for EMS prior to arrival. One defibrillation for EMS.
--- NOTE | 2024-10-19 03:54 | EX.ED.DYSGE1 ---
HPI History of Present Illness Chief Complaint: Cardiac Arrest Informant: EMS Narrative Narrative: Patient is a 69-year-old male with past medical history of Parkinson's disease hypertension hyperlipidemia and type 2 diabetes. EMS reports they were called as the patient's awoke and realized he was not responding. EMS states when they arrived they confirmed the patient was pulseless and apneic and they began CPR and ACLS protocol. They reports that his main rhythm was asystole. They state that at the end of 20 minutes they did a pulse and rhythm check and he was found to be in ventricular fibrillation. At that time they performed defibrillation with 200 J and had return of spontaneous circulation. Following this they placed him on an amiodarone drip and transported him to the ER for evaluation. [facility] Medical History Orthostatic hypotension Orthostatic hypotension dysautonomic syndrome Syncope Migraine aura without headache Encounter for screening for COVID-19 Elevated PSA, less than 10 ng/ml Anxiety Poison tommy dermatitis Pain in toe of left foot neurological migraine with vertigo Hx-TIA (transient ischemic attack) Kidney disease, chronic, stage III (GFR 30-59 ml/min) Groin pain, chronic, right Right bundle branch block Diabetes type 2, controlled Chronic kidney disease Vocal cord dysfunction Essential (primary) hypertension Colon cancer Anxiety disorder Eczema Impotence Aneurysm, ophthalmic artery Hyperlipidemia Home Medications ?Medication ?Instructions ?Recorded ?Last Taken ?Type ascorbic acid (vitamin C) 500 mg 500 mg PO QDAY 10/19/17 Unknown History tablet aspirin 81 mg tablet,delayed 81 mg PO DAILY 02/08/18 02/12/18 History release (Adult Low Dose Aspirin) lancets 30 gauge (OneTouch Delica #200 ea 01/23/19 Unknown Rx Lancets) blood sugar diagnostic #100 ea 03/01/19 Unknown Rx butalbital 50 mg-acetaminophen 325 1 cap PO Q4H PRN pain 05/02/19 Unknown History mg-caffeine 40 mg-codeine 30 mg cap inhalational spacing device #1 ea 10/01/19 Unknown Rx (BreatheRite Valved MDI Chamber spacer) spacer #1 ea 10/01/19 Unknown Rx biotin 10,000 mcg capsule 10,000 mcg PO DAILY 05/07/21 Unknown History vitamin B complex 1 tab PO DAILY 12/17/21 Unknown History finasteride 5 mg tablet 5 mg PO DAILY 07/27/22 Unknown History fludrocortisone 0.1 mg tablet 0.1 mg PO DAILY 09/26/22 Unknown History sumatriptan 20 mg/actuation nasal 20 mg intranasal Q2H PRN migraine 08/16/23 Unknown Rx spray headache #6 ea budesonide 1 mg/2 mL suspension 1 mg (2 mL) inhalation BID #120 mL 09/13/23 Unknown Rx for nebulization albuterol sulfate 90 mcg/actuation 2 puff inhalation Q4H PRN 11/01/23 Unknown Rx aerosol inhaler shortness of breath #1 ea ketoconazole 2 % topical cream 1 applic topical QDAY PRN 11/03/23 Unknown History ezetimibe 10 mg tablet 10 mg PO DAILY #90 TABLETS 05/06/24 Unknown Rx sumatriptan succinate 100 mg tablet 100 mg PO ONCE PRN migraine 05/07/24 Unknown Rx headache #10 tabs diazepam 5 mg tablet 5 mg PO BID PRN 08/05/24 Unknown History ibuprofen 600 mg tablet 600 mg PO Q8H PRN pain #100 tabs 09/11/24 Unknown Rx droxidopa 100 mg capsule 100 mg PO TID #90 caps 10/09/24 Unknown Rx Allergy/AdvReac Type Severity Reaction Status Date / Time NSAIDS (Non-Steroidal Allergy Intermediate Kidneys Verified 08/27/24 13:48 Anti-Inflamma shut down TIESHA Inhibitors Allergy Unknown Verified 08/27/24 13:48 carisoprodol (From Soma AdvReac Intermediate Nausea/Vom/ Verified 08/27/24 13:48 Compound) Diarrhea Family History Father Heart disease Glaucoma Brother Hypertension Sister Hormonal disorder Sister Cancer Respiratory abnormality Mother Diabetes Kidney disease Surgical History History of ear surgery (2003) History of open reduction and internal fixation (ORIF) procedure (1969) History of eye surgery History of left heart catheterization (02/12/18) History of endoscopy History of colonoscopy Social History household members: spouse current occupational status: retired pets and animals: No Smoking Status: Unknown if ever smoked second hand exposure: No alcohol intake: never substance use type: does not use caffeine: Yes Type: coffee Number of servings: 2 do you feel safe at home: Yes ROS ROS ED Review of Systems ROS Unobtainable: other Details: Unable to obtain review of systems secondary to patient's critical status EXAM Physical Exam Const Vital Signs: 10/19/24 02:56 10/19/24 03:00 10/19/24 03:02 Temperature 95.7 F L Temperature [2] Temperature Source Core Pulse Rate 75 78 Pulse Rate [1] Pulse Rate [2] Respiratory Rate 16 14 Blood Pressure 61/38 L Blood Pressure Mean 45 Pulse Ox 92 Oxygen Delivery Method Ambu-Bag 10/19/24 03:06 10/19/24 03:08 10/19/24 03:11 Temperature 95.6 F L Temperature [2] 95.7 F L Temperature Source Core Pulse Rate 72 75 Pulse Rate [1] 0 L Pulse Rate [2] 64 Respiratory Rate 20 H 12 Blood Pressure 59/43 L 236/104 H Blood Pressure Mean 50 140 Pulse Ox 90 Oxygen Delivery Method Ambu-Bag Ambu-Bag 10/19/24 03:12 10/19/24 03:15 10/19/24 03:18 Temperature 95.8 F L 95.9 F L Temperature [2] Temperature Source Core Core Pulse Rate 93 69 Pulse Rate [1] Pulse Rate [2] Respiratory Rate 11 L 10 L Blood Pressure 243/112 H 230/118 H 189/80 H Blood Pressure Mean 149 150 109 Pulse Ox 92 93 Oxygen Delivery Method 10/19/24 03:21 10/19/24 03:24 10/19/24 03:27 Temperature 95.9 F L 95.8 F L 95.8 F L Temperature [2] Temperature Source Core Core Core Pulse Rate 66 58 L 53 L Pulse Rate [1] Pulse Rate [2] Respiratory Rate 11 L 9 L 14 Blood Pressure 143/67 H 96/57 L 78/50 L Blood Pressure Mean 88 70 60 Pulse Ox 89 86 84 Oxygen Delivery Method 10/19/24 03:30 10/19/24 03:33 10/19/24 03:36 Temperature 95.8 F L Temperature [2] Temperature Source Core Pulse Rate 47 L Pulse Rate [1] Pulse Rate [2] Respiratory Rate 12 Blood Pressure 69/52 L 73/57 L 122/106 H Blood Pressure Mean 59 64 111 Pulse Ox 79 Oxygen Delivery Method 10/19/24 03:39 10/19/24 03:42 10/19/24 03:45 Temperature 95.7 F L 95.7 F L 95.7 F L Temperature [2] Temperature Source Core Core Core Pulse Rate 48 L 42 L 0 L Pulse Rate [1] Pulse Rate [2] Respiratory Rate 0 L 0 L Blood Pressure 51/39 L 47/35 L 83/68 L Blood Pressure Mean 45 41 75 Pulse Ox 79 Oxygen Delivery Method Positive well nourished and well developed General Appearance ED: well developed, cyanotic and pallor HEENT HEENT Narrative: Normocephalic atraumatic Upon intubation there is a large amount of dark emesis with in the oropharynx and posterior pharynx No tongue or cheek biting to suggest recent seizure activity Eyes Eyes Narrative: Pupils are fixed and dilated General Eye ED: Negative for scleral icterus Chest Wall palpation of chest normal Chest Narrative: No bony deformity or crepitance Resp Resp Narrative: No spontaneous respirations Bagging through the ET tube produces bilateral breath sound however they are diminished with rhonchi noted in the right lower lobe concerning/consistent with aspiration. Cardio Rate: bradycardia and other Other Details: Heart is a bradycardic rate with regular rhythm GI GI Narrative: Soft and nondistended with hypoactive bowel sounds No pulsatile mass Extremity normal to inspection Extremity Narrative: No signs of long bone injury or bony deformity or joint effusion Neuro Neuro Narrative: GCS of 3 Patient is unresponsive There is no response to painful stimuli Skin Skin Narrative: Skin is cool pale and slightly mottled No signs of injury General Skin Exam: pallor MDM MDM MDM Narrative Medical decision making narrative: Patient arrived to the ER with a GCS of 3. It is unknown how long he was in cardiopulmonary arrest as the patient's awoke and found him that way. EMS performed a minimum of 20 minutes of ACLS protocol/resuscitation prior to ROSC. The patient arrived to the ER with an IO in the left humerus and a Igel. As he has findings consistent with aspiration and the i-gel does not truly provide airway protection the i-gel was removed and the patient was intubated with an ET tube as documented below. 2 18-gauge IVs were placed and the patient's amiodarone drip which was started by EMS was continued. While the patient was being evaluated he then became bradycardic and lost his pulse and CPR was then restarted. He was given 1 amp of epinephrine and after 1 round of CPR/2 minutes he did have return of spontaneous circulation. At this time he has no signs of brain function as his pupils are fixed and dilated he has no response to painful stimuli and is not breathing on his own. The patient's case was discussed with his who states that he has a living will which states that he does not want any extraordinary life-saving measures or to be placed on the ventilator. Based on this report she does ask that we cease any type of resuscitation measures as this is not what he would want. The patient's norepinephrine drip was stopped and respiratory support through bag valve with the ET tube was ceased as well. Following cancellation of the supportive breathing and epinephrine the patient became bradycardic and then asystolic. An ultrasound was placed on the patient's chest at that time and confirmed no spontaneous cardiac activity. Therefore the patient was pronounced at 0346. The patient was intubated with an 8-0 ET tube. The cords were visualized with a glide scope. As his GCS was 3 there is no need for sedation or paralyzation. The tube was passed through the cords with 1 attempt and confirmation was color change capnography and bilateral breath sound. Patient tolerated procedure well without complication. History & Record Review Discussion w/independent historian: EMS personnel and Significant other Critical Care Time Critical Care Time: Yes Critical care time (excluding procedures): Discussing w/Patient &/or Family/Medical Practice Administrator, Performing Direct Patient Care at Bedside and - (Critical care time of 31 minutes) Discharge Plan Triage Chief Complaint: Cardiac Arrest ED Provider: Vasquez Hardin Dx/Rx/DC Orders Clinical Impression: Cardiopulmonary arrest, Hyperlipidemia, Essential (primary) hypertension, Diabetes type 2, controlled, Parkinson's disease Prescriptions: No Action ascorbic acid (vitamin C) 500 mg tablet 500 mg PO QDAY biotin 10,000 mcg capsule 10,000 mcg PO DAILY epqivguene-essgfpcpwo-nxk-cod [id number] mg capsule 1 cap PO Q4H PRN (Reason: pain) (DME) BreatheRite Valved MDI Chamber Spacer See Rx Instructions .ROUTE .MEDSUPPLY Qty: 1 0RF Rx Instructions: As directed vitamin B complex Tablet 1 tab PO DAILY fludrocortisone 0.1 mg tablet 0.1 mg PO DAILY finasteride 5 mg tablet 5 mg PO DAILY sumatriptan 20 mg/actuation spray,non-aerosol 20 mg intranasal Q2H PRN (Reason: migraine headache) Qty: 6 1RF Rx Instructions: administer into one nostril as a single dose; if 2nd dose needed,administer into other nostril after at least 2 hrs, NTE 2 doses (40 mg) per episode ketoconazole 2 % cream 1 applic TOPICAL QDAY PRN diazepam 5 mg tablet 5 mg PO BID PRN aspirin [Adult Low Dose Aspirin] 81 mg tablet,delayed release (DR/EC) 81 mg PO DAILY (DME) lancets [OneTouch Delica Lancets] 30 gauge misc See Rx Instructions .ROUTE .MEDSUPPLY Qty: 200 1RF Rx Instructions: As directed (DME) blood sugar diagnostic Strip See Rx Instructions .ROUTE .MEDSUPPLY Qty: 100 1RF Rx Instructions: As directed twice daily (DME) spacer See Rx Instructions .ROUTE .MEDSUPPLY Qty: 1 0RF Rx Instructions: As directed budesonide 1 mg/2 mL suspension for nebulization 1 mg INHALATION BID Qty: 120 12RF Rx Instructions: J44.9 COPD albuterol sulfate 90 mcg/actuation HFA aerosol inhaler 2 puff inhalation Q4H PRN (Reason: shortness of breath) Qty: 1 3RF Rx Instructions: administer with spacer ezetimibe 10 mg tablet 10 mg PO DAILY Qty: 90 1RF sumatriptan succinate 100 mg tablet 100 mg PO ONCE PRN (Reason: migraine headache) Qty: 10 2RF ibuprofen 600 mg tablet 600 mg PO Q8H PRN (Reason: pain) Qty: 100 2RF droxidopa 100 mg capsule 100 mg PO TID Qty: 90 2RF Primary Care Provider: Sawyer Yan Referrals: Sawyer Yan, [Primary Care Provider] - Print Language: Bahamian Disposition Disposition: Date/Time: 10/19/24 03:46
== END 2024-10-19 05:36 ==
PROVIDERS: Emergency Provider Emergency Medicine; PCP Family Medicine; Visit Provider Emergency Medicine
DX: I49.01 Ventricular fibrillation (principal); G20.A1 Parkinson's disease without dyskinesia, without mention of fluctuations; E11.22 Type 2 diabetes mellitus with diabetic chronic kidney disease; N18.30 Chronic kidney disease, stage 3 unspecified; R00.1 Bradycardia, unspecified; I12.9 Hypertensive chronic kidney disease with stage 1 through stage 4 chronic kidney disease, or unspecified chronic kidney disease; E78.5 Hyperlipidemia, unspecified; Z79.82 Long term (current) use of aspirin; Z79.899 Other long term (current) drug therapy; Z86.73 Personal history of transient ischemic attack (TIA), and cerebral infarction without residual deficits
CPT/HCPCS: 31500; 51702; 92950; 93005; 96361; 96374; 96375; 99252; 99284; A4216; G0463; J3475